=== PATIENT | male | born 1980 | race Caucasian/White ===

== ENCOUNTER 2018-09-04 15:25 | Emergency (ER) | payer OTHER, MEDICAID, SELFPAY ==
[2018-09-04 15:28] VITALS: BP 218/130; PULSE 112; RESP 20; TEMP 36.9; O2SAT 100; BMI 26.6
--- NOTE | 2018-09-04 15:40 | DI.CT.S_ITS ---
PROCEDURE: CT HEAD/BRAIN WO CON INDICATIONS: High blood pressure TECHNIQUE: Noncontrast 4.5 mm thick angled axial sections acquired from the foramen magnum to the vertex, with coronal and sagittal reformats. For radiation dose reduction, the following was used: automated exposure control, adjustment of mA and/or kV according to patient size. COMPARISON: None. FINDINGS: Image quality: Excellent. CSF spaces: Basal cisterns are patent. No extra-axial fluid collections. Ventricles are normal in size and shape. Brain: No midline shift. No intracranial masses or hemorrhage. Staples-white matter interface is normal. Skull and face: Calvarium and visualized facial bones are intact, without suspicious lesions. There is old right frontal craniotomy. Sinuses: Visualized sinuses and mastoids are clear. IMPRESSION: 1. No acute intracranial abnormalities. Dictated by: Claus Shah M.D. on 09/04/2018 at 16:09 Approved by: Claus Shah M.D. on 09/04/2018 at 16:12
--- NOTE | 2018-09-04 16:12 | DI.RAD.S_ITS ---
PROCEDURE: XR CHEST 1V INDICATIONS: headache, hypertension TECHNIQUE: One view of the chest was acquired. COMPARISON: None. FINDINGS: Surgical changes and devices: None. Lungs and pleura: No pleural effusions or pneumothorax. Lungs are clear. Mediastinum: Mediastinal contours appear normal. Heart size is normal. Bones and chest wall: No suspicious bony lesions. Overlying soft tissues appear unremarkable. IMPRESSION: 1. No acute cardiopulmonary disease. Dictated by: Hardik Barnett M.D. on 09/04/2018 at 16:26 Approved by: Hardik Barnett M.D. on 09/04/2018 at 16:27
--- NOTE | 2018-09-04 16:14 | ED.HA ---
HPI - Headache General Chief Complaint: Headache Stated Complaint: States high blood pressure and migraines Time Seen by Provider: 09/04/18 16:12 Source: patient Mode of arrival: ambulatory Limitations: no limitations History of Present Illness HPI Narrative: This a 38-year-old male comes to the emergency department with complaint of headaches and hypertension. Patient states he has a longstanding history of hypertension. Patient states that he was diagnosed 7 or 8 years ago. Was on lisinopril he is not sure of it completely treat his hypertension at the time was a couple years ago. He has not been taking that medication for a long time. He denies any other medical history currently. He did have a craniectomy at the age of 1 because the bones or pulling together inappropriately Um this was at [facility]. He has not had any other surgical interventions. Does smoke about half pack per day, he denies any alcohol or illicit. He states he has been having mild headache today Um and decided to come in because he just has not followed up for a long time he has finally gotten insurance but does not have a primary care provider. He states he does get migraines occasionally all but this is not his typical symptoms today. He occasionally has some tightness in his chest but does not related to anything in particular. He states that has not occurred for several days he denies any shortness of breath with any of these episodes, no vision changes, dizziness, no nausea no vomiting no diaphoresis. Patient's any swelling in his lower extremities. Related Data Previous Rx's Medication Instructions Recorded ibuprofen 600 mg PO TID PRN #14 tab 09/04/18 metoprolol tartrate 12.5 mg PO BID #30 tab 09/04/18 Allergies Allergy/AdvReac Type Severity Reaction Status Date / Time No Known Drug Allergies Allergy Verified 09/04/18 15:32 Review of Systems Review of Systems ROS Unobtainable: All systems reviewed & are unremarkable except as noted in HPI and below Constitutional Denies chills, Denies fever(s), Reports headache(s), Denies lethargy and Denies weakness Eyes Denies change in vision ENT Ears, Nose, Mouth, and Throat: Reports headache(s) and Denies disequilibrium Cardiovascular Reports chest pain (occasional, last a couple days ago.), Denies diaphoresis, Denies syncope, Denies edema, Denies irregular heart rhythm, Denies lightheadedness, Denies radiating jaw, neck or arm pain, Denies palpitations, Denies dyspnea, Denies dyspnea on exertion and Denies orthopnea Respiratory Denies change in phlegm color, Denies chest congestion, Denies cough, Denies dyspnea and Denies dyspnea on exertion Gastrointestinal Gastrointestinal: Denies abdominal pain, Denies change in bowel habits, Denies diarrhea, Denies nausea and Denies vomiting Genitourinary Denies difficulty urinating Musculoskeletal Denies numbness Integumentary/Breasts Denies rash Neurologic Denies syncope, Reports headache(s), Denies focal weakness, Denies numbness, Denies disequilibrium and Denies weakness Endocrine Denies palpitations PFSH Medical History Hypertension (Chronic) Surgical History Status post craniectomy (Acute) Social History Smoking Status: Current every day smoker substance use type: does not use Exam Narrative Exam Narrative: GEN: well nourished, well appearing male, alert and oriented x 3, patient appears to be in no acute distress. HEENT: Atraumatic, pupils are equal round reactive to light, extraocular movements are intact, nares are clear HEART: Regular rate and rhythm without murmur, clicks, rubs. LUNGS:Lungs clear to auscultation, no wheezes, rales, crackles, chest moves symmetrically ABD:bowel sounds normal, soft, non-tender, no guarding, rebound, rigidity, no masses noted, no hepatosplenomegaly :No CVA tenderness MSCL: Non-tender, no muscle atrophy, muscles strength 5/5 upper and lower extremities, full range of motion, normal gait NEURO:CN 2-12 intact, sensation normal Initial Vital Signs Initial Vital Signs: Vital Signs Temperature 98.5 F 09/04/18 15:28 Pulse Rate 112 H 09/04/18 15:28 Respiratory Rate 20 09/04/18 15:28 Blood Pressure 218/130 H 09/04/18 15:28 Pulse Oximetry 100 09/04/18 15:28 Scores HEART Score Heart Score history: Slightly Suspicious Heart Score EKG: Non-Specific repolarization disturbance Heart Score Age: < 45 years old Heart Score risk factors: 1-2 risk factors Heart Score troponin: < or = to normal limit Heart Score Total: 2 Course Orders Ordered: ED Orders 09/04/18 15:40 CT head/brain wo con Stat 01/10/19 15:41 EKG-12 Lead Stat 09/04/18 16:12 XR chest 1V Stat 09/04/18 16:50 Complete Blood Count AUTO DIFF Stat Comprehensive Metabolic Panel Stat Lipase Stat Troponin & CK Cardiac Panel Stat Discontinued Medications Metoprolol Tartrate (Lopressor) 25 mg PO NOW ONE Stop: 09/04/18 16:23 Last Admin: 09/04/18 16:37 Dose: 25 mg Vital Signs - 8 hr 09/04/18 15:28 09/04/18 16:45 09/04/18 17:17 Temperature 98.5 F Pulse Rate 112 H 98 H 75 Respiratory Rate 20 20 18 Blood Pressure 218/130 H Blood Pressure [Right Arm] 212/127 H 140/97 H Pulse Oximetry 100 99 100 MDM - Headache Lab Data Attestation: I reviewed the patient's lab results. Result diagrams: 09/04/18 16:50 09/04/18 16:50 Lab Results 09/04/18 09/04/18 Range/Units 16:50 16:50 WBC 8.4 (4.5-11.0) X10^3/uL RBC 5.62 (4.5-5.9) X10^6/uL Hgb 17.1 (13.5-17.5) g/dL Hct 50.0 (41-53) % MCV 89.1 (80-100) fL MCH 30.4 (26-34) PG MCHC 34.1 (30-36) % RDW 13.6 (11.6-14.8) % Plt Count 262 (150-400) X10^3/uL Neut % (Auto) 52.3 (50-75) % Lymph % (Auto) 35.8 (25-40) % [place] % (Auto) 7.2 (3-14) % Eos % (Auto) 3.8 (2-4) % Baso % (Auto) 0.9 (0-2) % Neut # (Auto) 4400 (0685-2924) /uL Sodium 140 (137-145) mmol/L Potassium 4.2 (3.4-5.1) mmol/L Chloride 103 (98-107) mmol/L Carbon Dioxide 25 (22-32) mmol/L BUN 13 (9-20) mg/dL Creatinine 1.00 (0.66-1.25) mg/dL Estimated GFR > 60.0 (>60) mL/min BUN/Creatinine Ratio 13.0 (6-22) Glucose 88 (70-100) mg/dL Calcium 9.5 (8.4-10.2) mg/dL Total Bilirubin 1.3 (0.2-1.3) mg/dL AST 24 (17-59) IU/L ALT 19 L (21-72) IU/L Alkaline Phosphatase 59 (38-126) U/L Total Creatine Kinase 119 (55-170) U/L CK-MB (CK-2) 0.64 (<2.37) ng/mL CK-MB (CK-2) Rel Index 0.5 L (1.5-5.0) % Troponin I < 0.012 (0.01-0.034) ng/mL Total Protein 7.6 (6.3-8.2) g/dL Albumin 4.5 (3.5-5.0) g/dL Globulin 3.1 (1.7-4.1) g/dL Albumin/Globulin Ratio 1.5 (1.0-2.8) Lipase 115 (23-300) U/L ECG Data Attestation: I personally reviewed and interpreted this ECG as follows: Interpretation: Sinus rhythm with a rate of 104, QRS of 113 and QTC of 427. EKG read it as atrial flutter/tachycardia but patient appears to have P waves with each QRS this does not look like a flutter rhythm. Patient has possible ST elevation but appears to be early repolarization. MDM Narrative Medical decision making narrative: Discussed with patient his headache has been improved here in the emergency department after his pressure is improving. Pressure has improved quite a bit although he is sometimes up to 180s range and diastolic still in the 90s. Discussed with him he does need follow-up. We will give him a short-term script for low-dose metoprolol 12.5 mg b.i.d. patient does not have any major electrolyte, renal or cardiac abnormalities. He is not having chest pain regularly or with any concerning symptomatology. Um headaches have been fairly low intensity. He did request some ibuprofen prescription. We did discuss that he should return if he is having difficulty with follow-up. Discharge Plan Departure Patient Disposition: Home Clinical Impression: Hypertension, Headache Discharge Date/Time: 09/04/18 17:56 Interventions: ED Discharge Assessment Last Done: 09/04/18 17:56 Instructions: Hypertension (Alternative Therapy) Activity Restrictions/Additional Instructions: Follow up with primary care for recheck and treatment of your hypertension. Call tomorrow for an appointment. Take medication as prescribed. This medication can cause lightheadedness. Return to the emergency department for any worsening symptoms, if you're having sudden severe headaches, vision changes and, new chest pain, shortness of breath, swelling in her lower extremities or other new or concerning symptoms. Prescriptions: New metoprolol tartrate 25 mg tablet 12.5 mg PO BID Qty: 30 RF: 0 ibuprofen 600 mg tablet 600 mg PO TID PRN (Reason: pain) Qty: 14 RF: 0 Referrals: [facility] [Provider Group] [facility] [Provider Group] [facility] [Provider Group]
[2018-09-04] MEDS: METOPROLOL 12.5 MG TABLET 25 MG PO (16:37)
[2018-09-04 16:45] VITALS: BP 212/127; PULSE 98; RESP 20; O2SAT 99
[2018-09-04 17:08] LABS: Add Manual Diff / Slide Review NO; Basophils Percent Auto 0.9 % (0-2); Eosinophils Percent Auto 3.8 % (2-4); Hemoglobin 17.1 g/dL (13.5-17.5); Lymphocytes Percent Auto 35.8 % (25-40); Mean Corpuscular HGB Conc 34.1 % (30-36); Mean Corpuscular Hemoglobin 30.4 PG (26-34); Mean Corpuscular Volume 89.1 fL (80-100); Monocytes Percent Auto 7.2 % (3-14); Neutrophils Absolute Auto 4400 /uL (1500-7000); Neutrophils Percent Auto 52.3 % (50-75); Platelet Count 262 X10^3/uL (150-400); Red Blood Cell Count 5.62 X10^6/uL (4.5-5.9); Red Cell Distribution Width 13.6 % (11.6-14.8); White Blood Cell Count 8.4 X10^3/uL (4.5-11.0)
[2018-09-04 17:12] LABS: Alanine Aminotransferase 19 IU/L (21-72); Albumin 4.5 g/dL (3.5-5.0); Albumin Globulin Ratio 1.5 (1.0-2.8); Alkaline Phosphatase 59 U/L (38-126); Aspartate Aminotransferase 24 IU/L (17-59); Bilirubin Total 1.3 mg/dL (0.2-1.3); Blood Urea Nitrogen 13 mg/dL (9-20); Calcium 9.5 mg/dL (8.4-10.2); Carbon Dioxide 25 mmol/L (22-32); Chloride 103 mmol/L (98-107); Creatine Kinase 119 U/L (55-170); Estimated Glomerular Filt Rate > 60.0 mL/min (>60); Globulin 3.1 g/dL (1.7-4.1); Glucose 88 mg/dL (70-100); Lipase 115 U/L (23-300); Potassium 4.2 mmol/L (3.4-5.1); Sodium 140 mmol/L (137-145); Total Protein 7.6 g/dL (6.3-8.2)
[2018-09-04 17:17] VITALS: BP 140/97; PULSE 75; RESP 18; O2SAT 100
[2018-09-04 17:26] LABS: HEMOLYSIS 56 (0-50); Troponin I < 0.012 ng/mL (0.01-0.034)
[2018-09-04 17:27] LABS: CKMB % Relative Index 0.5 % (1.5-5.0); Creatine Kinase MB 0.64 ng/mL (<2.37)
== END 2018-09-04 17:56 | disposition home or self-care (01) ==
PROVIDERS: Emergency Provider Emergency Medicine
DX: I10 Essential (primary) hypertension (principal); R51 Headache
CPT/HCPCS: 36591; 70450; 71045; 80053; 82550; 82553; 83690; 84484; 85025; 93005; 99282; 99285

== ENCOUNTER → 2018-12-24 08:01 | Outpatient (CLI) | payer OTHER, MEDICAID, SELFPAY ==
--- NOTE | 2018-12-24 | DI.ECHO.S_ITS ---
[place] [facility]---------+ [facility] +---------+ : : [address] : : : : [id number] : : : : Phone: [phone] Echocardiogram Report + + :Name: NYDIA BAKER Study Date: 12/24/2018 Height: 67 in : :[facility] Exam Location: [facility] Weight: 175 lb : : Gender: Male BSA: 1.9 m2 : :: 1980 Age: 38 yrs BP: 140/90 mmHg: :Reason For Study: Hypertension : : Performed By: Saima Page : :Referring: LIONEL POP : + + Interpretation Summary The ejection fraction is estimated to be 60-65%. There is no significant valvular heart disease. Procedure: A two-dimensional transthoracic echocardiogram with color flow and Doppler was performed. The study quality was technically adequate. There is no prior echocardiogram noted for this patient. The patient was in normal sinus rhythm during the exam. Left Ventricle: There is mild concentric left ventricular hypertrophy. The left ventricle is normal in size. The ejection fraction is estimated to be 60- 65%. There are no focal wall motion abnormalities. Right Ventricle: The right ventricle is normal in size and function. Atria: Both atria are mildly dilated. There is no Doppler evidence for an interatrial shunt. Mitral Valve: The mitral valve leaflets appear mildly thickened, but open well. There is trace mitral regurgitation. Aortic Valve: The aortic valve is grossly normal. The aortic valve opens well. There is trace aortic regurgitation. Tricuspid Valve: The tricuspid valve is normal in structure and function. Pulmonary artery pressures cannot be estimated because of the lack of a measurable TR jet velocity. Pulmonic Valve: The pulmonic valve is not well visualized. There is trace pulmonic regurgitation. Great Vessels: The aortic root is normal size. The ascending aorta is normal in size. The aortic arch is normal in size. The pulmonary artery is not well visualized, but is probably normal size. The IVC is of normal diameter and collapses greater than 50% with a sniff. This suggests a low right atrial pressure of 3 mm Hg. Pericardium/ Pleura There is no pericardial effusion. There is no pleural effusion. MMode/2D Measurements & Calculations LVIDd: 4.1 cm LVOT diam: 2.2 cm LVIDs: 2.3 cm Ao root diam: 3.2 cm FS: 44.2 % asc Aorta Diam: 3.1 cm EPSS: 0.15 cm Ao Arch Diam (Prox Trans): 2.7 cm IVSd: 1.1 cm LVPWd: 1.2 cm LV triana. diameter/BSA (cm/m^2): 2.2 LV sys. diameter/BSA (cm/m^2): 1.2 LA A2 area: 22.1 cm2 RA long axis: 4.7 cm LA A4 area: 18.7 cm2 RA area: 18.6 cm2 LA length (vol): 4.9 cm RA vol: 62.7 ml LA vol: 71.6 ml RA : 32.8 ml/m2 LA vol index: 37.5 ml/m2 RVD1 (basal): 3.7 cm RVD2 (mid): 3.1 cm Doppler Measurements & Calculations Ao V2 max: 127.8 cm/sec LVOT Max Vincent: 114.9 cm/sec Ao V2 mean: 94.2 cm/sec LV V1 max P.3 mmHg Ao max P.5 mmHg LV V1 VTI: 20.6 cm Ao mean P.8 mmHg MIKE(I,D): 3.4 cm2 Ao V2 VTI: 22.3 cm MIKE(V,D): 3.3 cm2 sev ratio: 0.92 MIKE indexed to BSA (cm^2/m^2): 1.8 MV E max vincent: 54.1 cm/sec PA V2 max: 85.3 cm/sec MV A max vincent: 55.3 cm/sec PA V2 mean: 57.6 cm/sec MV E/A: 0.98 PA mean P.5 mmHg Med Peak E' Vincent: 4.9 cm/sec PA Accel Time: 0.06 sec E/E' med: 11.1 Lat Peak E' Vincent: 8.3 cm/sec E/E' lat: 6.6 E/e' average: 8.9 MV dec time: 0.19 sec MV P1/2t: 56.6 msec MV P1/2t max vicnent: 54.6 cm/sec SV(LVOT): 76.2 ml MVA(P1/2t): 3.9 cm2 Reading Physician:03:32 PM
== END ==
PROVIDERS: PCP Nurse Practitioner Family; Visit Provider Nurse Practitioner Family
DX: I10 Essential (primary) hypertension (principal); F17.200 Nicotine dependence, unspecified, uncomplicated
CPT/HCPCS: 93306

== ENCOUNTER 2019-09-12 05:16 | Emergency (ER) | payer OTHER, MEDICAID, SELFPAY ==
[2019-09-12] MEDS: LABETALOL 20 MG/4 ML SYRINGE 10 MG IV (05:30)
[2019-09-12 05:35] VITALS: BP 230/120; PULSE 93; RESP 17; TEMP 37.1; O2SAT 97; BMI 28.1
--- NOTE | 2019-09-12 05:35 | ED_ITS ---
HPI - Medical Clearance General Chief complaint: Hypertension Stated complaint: fit for prison Time Seen by Provider: 09/12/19 05:16 Source: patient and police Mode of arrival: Ambulatory Limitations: no limitations History of Present Illness HPI Narrative: 39-year-old male daily smoker with history of profound hypert ension is admittedly not taking his medications but free of any symptoms. He is brought by [facility] for medical clearance for incarceration. Patient denies headaches or blurred vision. He has no chest pain or shortness of breath. He has no abdominal pain or numbness, tingling or weakness. He states he is supposed to take lisinopril and metoprolol but doesn't and is unable to explain why. He is otherwise well and free of complaint MD complaint: medical clearance requested Reason for Medical Clearance: medical condition Alleged Intoxication: No Compliant with Home Medications: No Associated Symptoms: denies other symptoms Treatments Prior to Arrival: none Related Information Previous Rx's Medication Instructions Recorded ibuprofen 600 mg PO TID PRN #14 tab 09/04/18 lisinopril 20 mg PO DAILY #30 tab 09/12/19 metoprolol tartrate 12.5 mg PO BID #30 tab 09/12/19 Allergies Allergy/AdvReac Type Severity Reaction Status Date / Time No Known Drug Allergies Allergy Verified 09/04/18 15:32 Review of Systems Constitutional Constitutional: Denies chills, Denies fatigue, Denies fever(s), Denies frequent falls, Denies lethargy and Denies weakness Eyes Eyes: Denies change in vision, Denies eye discharge, Denies irritation and Denies loss of vision ENT Ears, Nose, Mouth, and Throat: Denies change in voice, Denies dizziness, Denies neck pain, Denies sore throat and Denies throat swelling Cardiovascular Cardiovascular: Denies chest pain, Denies irregular heart rhythm, Denies lightheadedness, Denies palpitations, Denies dyspnea, Denies dyspnea on exertion and Denies orthopnea Respiratory Respiratory: Denies cough, Denies dyspnea, Denies dyspnea on exertion and Denies wheezing Gastrointestinal Gastrointestinal: Denies abdominal pain, Denies change in bowel habits, Denies diarrhea, Denies nausea and Denies vomiting Genitourinary Genitourinary: Denies hematuria, Denies flank pain, Denies urinary incontinence and Denies urinary urgency Musculoskeletal Musculoskeletal: Denies back pain, Denies muscle weakness, Denies neck pain, Denies numbness and Denies tingling Integumentary/Breasts Skin/Breast: Denies pruritus, Denies erythema, Denies rash and Denies wounds Neurologic Neurologic: Denies behavioral changes, Denies confusion, Denies dizziness, Denies frequent falls, Denies loss of vision, Denies numbness, Denies tingling and Denies weakness Psychiatric Psychiatric: Denies anxiety, Denies behavioral changes, Denies confusion, Denies depression, Denies homicidal ideation and Denies suicidal ideation Endocrine Endocrine: Denies fatigue, Denies flushing and Denies palpitations Hematologic/Lymphatic Hematologic/Lymphatic: Denies easy bruising Allergic/Immunologic Allergic/Immunologic: Denies urticaria, Denies throat swelling and Denies wheezing Patient History Medical History (Updated 09/12/19 @ 06:14 by Ajit Kumar DO) Hypertension (Chronic) Surgical History (Updated 09/04/18 @ 16:28 by Evette Buitrago DO) Status post craniectomy (Acute) Social History (Updated 09/04/18 @ 16:28 by Evette Buitrago DO) Smoking Status: Current every day smoker substance use type: does not use Smoking Status: Current every day smoker Substance Use Type: does not use Exam Narrative Exam Narrative: GENERAL: [39] year old patient appears stated age. Well- nourished, well-developed patient, in mild distress. HEAD: Atraumatic. Normocephalic. EYES: Pupils equal round and reactive. Extraocular motions intact. No scleral icterus. No injection or drainage. ENT: Nose without bleeding, purulent drainage. Throat without erythema, tonsillar hypertrophy or exudate. Airway patent. NECK: Trachea midline. Non tender CARDIOVASCULAR: Regular rate and rhythm without murmurs, gallops, or rubs. RESPIRATORY: Clear to auscultation. Breath sounds equal bilaterally. No wheezes, rales, or rhonchi. GASTROINTESTINAL: Abdomen soft, non-tender, nondistended. EXTREMITIES: No edema or joint tenderness. BACK: Nontender without deformity or crepitance. No flank tenderness. NEURO: AOx3. SKIN: No rash or erythema of visible areas Initial Vital Signs Initial Vital Signs: Vital Signs Temperature 98.7 F 09/12/19 05:35 Pulse Rate 93 H 01/18/20 05:35 Respiratory Rate 17 09/12/19 05:35 Blood Pressure 230/120 H 09/12/19 05:35 Pulse Oximetry 97 09/12/19 05:35 MDM - Medical Clearance Lab Data Result diagrams: 09/12/19 05:25 09/12/19 05:25 Labs: Lab Results 09/12/19 09/12/19 Range/Units 05:25 05:25 WBC 12.0 H (4.5-11.0) X10^3/uL RBC 5.44 (4.5-5.9) X10^6/uL Hgb 16.8 (13.5-17.5) g/dL Hct 48.5 (41-53) % MCV 89.2 (80-100) fL MCH 30.8 (26-34) PG MCHC 34.6 (30-36) % RDW 13.4 (11.6-14.8) % Plt Count 299 (150-400) X10^3/uL Neut % (Auto) 43.7 L (50-75) % Lymph % (Auto) 45.2 H (25-40) % [place] % (Auto) 7.6 (3-14) % Eos % (Auto) 2.9 (2-4) % Baso % (Auto) 0.6 (0-2) % Neut # (Auto) 5200 (4623-1303) /uL Lymph # (Auto) 5400 H (8716-6268) /uL [place] # (Auto) 900 (0-900) /uL Eos # (Auto) 400 (0-450) /uL Baso # (Auto) 100 (0-100) /uL Sodium 137 (137-145) mmol/L Potassium 3.9 (3.4-5.1) mmol/L Chloride 100 (98-107) mmol/L Carbon Dioxide 26 (22-32) mmol/L BUN 16 (9-20) mg/dL Creatinine 1.00 (0.66-1.25) mg/dL Estimated GFR > 60.0 (>60) mL/min BUN/Creatinine Ratio 16.0 (6-22) Glucose 103 H (70-100) mg/dL Calcium 9.8 (8.4-10.2) mg/dL Total Creatine Kinase 166 (55-170) U/L CK-MB (CK-2) 1.15 (<2.37) ng/mL CK-MB (CK-2) Rel Index 0.7 L (1.5-5.0) % Troponin I < 0.012 (0.01-0.034) ng/mL B-Natriuretic Peptide < 100 (<100) ECG Data Interpretation: EKG is normal sinus rhythm rate [93 ] and free of any signs of ischemia or ectopy. No ST segmental elevation or depression. No T wave inversions MDM Narrative Medical decision making narrative: HTN persists, patient has no symptoms. He states his pressures are where they always are. He wishes to go home to take his medications. He understands the risks of HTN which include stroke, , permanent disability, etc. He has been given return precautions and has had questions answered to his apparent satisfaction. Discharge Plan Departure Patient Disposition: Home Clinical Impression: Hypertension Qualifiers: Hypertension type: essential hypertension Qualified Code(s): I10 - Essential (primary) hypertension Instructions: DI for High Blood Pressure Activity Restrictions/Additional Instructions: *You have been diagnosed with [ hypertension ] *What to do: *Take medications as directed: Prescriptions sent to [facility] at your request *Follow up with your primary care provider in 2-3 days, call for an appointment. Let them know you were seen in the Emergency Department and that we ask that you be seen in follow up *Return to ER if you should have any new, worsening or concerning symptoms Prescriptions: New lisinopril 20 mg tablet 20 mg PO DAILY Qty: 30 RF: 0 Continued metoprolol tartrate 25 mg tablet 12.5 mg PO BID Qty: 30 RF: 0 No Action ibuprofen 600 mg tablet 600 mg PO TID PRN (Reason: pain) Qty: 14 RF: 0 Referrals: [facility] [Outside] Taty Chang ARNP [Primary Care Provider] -
[2019-09-12] MEDS: LISINOPRIL 20 MG TABLET PO (05:42)
[2019-09-12 05:45] LABS: Add Manual Diff / Slide Review NO; Basophils Absolute Auto 100 /uL (0-100); Basophils Percent Auto 0.6 % (0-2); Eosinophils Absolute Auto 400 /uL (0-450); Eosinophils Percent Auto 2.9 % (2-4); Hematocrit 48.5 % (41-53); Hemoglobin 16.8 g/dL (13.5-17.5); Lymphocytes Absolute Auto 5400 /uL (1100-4500); Lymphocytes Percent Auto 45.2 % (25-40); Mean Corpuscular HGB Conc 34.6 % (30-36); Mean Corpuscular Hemoglobin 30.8 PG (26-34); Mean Corpuscular Volume 89.2 fL (80-100); Monocytes Absolute Auto 900 /uL (0-900); Monocytes Percent Auto 7.6 % (3-14); Neutrophils Absolute Auto 5200 /uL (1500-7000); Neutrophils Percent Auto 43.7 % (50-75); Platelet Count 299 X10^3/uL (150-400); Red Blood Cell Count 5.44 X10^6/uL (4.5-5.9); Red Cell Distribution Width 13.4 % (11.6-14.8)
[2019-09-12 05:46] VITALS: BP 220/123; PULSE 78; RESP 20; O2SAT 100
[2019-09-12 05:52] LABS: Blood Urea Nitrogen 16 mg/dL (9-20); Calcium 9.8 mg/dL (8.4-10.2); Carbon Dioxide 26 mmol/L (22-32); Chloride 100 mmol/L (98-107); Creatine Kinase 166 U/L (55-170); Estimated Glomerular Filt Rate > 60.0 mL/min (>60); Glucose 103 mg/dL (70-100); HEMOLYSIS 21 (0-50); Potassium 3.9 mmol/L (3.4-5.1); Sodium 137 mmol/L (137-145)
[2019-09-12 06:04] LABS: Troponin I < 0.012 ng/mL (0.01-0.034)
[2019-09-12 06:07] LABS: CKMB % Relative Index 0.7 % (1.5-5.0); Creatine Kinase MB 1.15 ng/mL (<2.37)
[2019-09-12 06:09] VITALS: BP 204/122; PULSE 84; RESP 18; O2SAT 100
[2019-09-12 06:09] LABS: B Type Natriuretic Peptide < 100 (<100)
[2019-09-12 06:20] VITALS: BP 208/134; PULSE 77
== END 2019-09-12 06:35 | disposition home or self-care (01) ==
PROVIDERS: Emergency Provider Emergency Medicine; PCP Nurse Practitioner Family
DX: I10 Essential (primary) hypertension (principal)
CPT/HCPCS: 36415; 80048; 82550; 82553; 83880; 84484; 85025; 93005; 96374; 99284

== ENCOUNTER 2023-10-15 15:40 | Emergency (ER) | payer OTHER, MEDICAID, SELFPAY ==
[2023-10-15 15:49] VITALS: BP 219/132; PULSE 103; RESP 18; TEMP 36.4; O2SAT 99; BMI 30.7
--- NOTE | 2023-10-15 16:07 | DI.RAD.S_ITS ---
PROCEDURE: XR CHEST 1V INDICATIONS: chest pain TECHNIQUE: One view of the chest was acquired. COMPARISON: [facility], CR, XR CHEST 1V, 09/04/2018, 16:36. FINDINGS: Surgical changes and devices: None. Lungs and pleura: Lungs are clear. No pleural effusions or pneumothorax. Mediastinum: Mediastinal contours appear normal. Heart size is normal. Bones and chest wall: No suspicious bony lesions. Overlying soft tissues appear unremarkable. IMPRESSION: No acute cardiopulmonary abnormality is seen. Dictated by: Sarah Man M.D. on 10/15/2023 at 16:40 Approved by: Sarah Man M.D. on 10/15/2023 at 16:40
[2023-10-15 16:25] LABS: Add Manual Diff / Slide Review NO; Basophils Absolute Auto 100 /uL (0-100); Eosinophils Absolute Auto 300 /uL (0-450); Eosinophils Percent Auto 4.1 % (2-4); Hematocrit 42.1 % (41-53); Hemoglobin 14.4 g/dL (13.5-17.5); Lymphocytes Absolute Auto 2700 /uL (1100-4500); Lymphocytes Percent Auto 36.4 % (25-40); Mean Corpuscular HGB Conc 34.3 % (30-36); Mean Corpuscular Hemoglobin 29.7 PG (26-34); Mean Corpuscular Volume 86.6 fL (80-100); Monocytes Absolute Auto 500 /uL (0-900); Monocytes Percent Auto 6.5 % (3-14); Neutrophils Absolute Auto 3800 /uL (1500-7000); Platelet Count 318 X10^3/uL (150-400); Red Blood Cell Count 4.86 X10^6/uL (4.5-5.9); Red Cell Distribution Width 13.5 % (11.6-14.8); White Blood Cell Count 7.4 X10^3/uL (4.5-11.0)
[2023-10-15 16:27] LABS: INR 0.9 (0.9-1.3); Prothrombin Time 10.7 SECONDS (9.4-12.5)
[2023-10-15 16:30] LABS: PTT Partial Thromboplastin Tim 33 SECONDS (25.1-36.5)
[2023-10-15 16:36] LABS: Alanine Aminotransferase 33 IU/L (<50); Albumin 4.2 g/dL (3.5-5.0); Albumin Globulin Ratio 1.3 (1.0-2.8); Alkaline Phosphatase 68 U/L (38-126); Aspartate Aminotransferase 31 IU/L (17-59); BUN Creatinine Ratio 13.6 (6-22); Bilirubin Total 0.9 mg/dL (0.2-1.3); Blood Urea Nitrogen 14 mg/dL (9-20); Calcium 9.6 mg/dL (8.4-10.2); Carbon Dioxide 24 mmol/L (22-32); Chloride 103 mmol/L (98-107); Creatine Kinase 126 U/L (55-170); Estimated Glomerular Filt Rate > 60 mL/min (>60); Globulin 3.2 g/dL (1.7-4.1); Glucose 80 mg/dL (70-100); HEMOLYSIS 26 (0-50); Lipase 75 U/L (23-300); Potassium 3.9 mmol/L (3.4-5.1); Sodium 138 mmol/L (137-145); Total Protein 7.4 g/dL (6.3-8.2)
[2023-10-15 16:44] LABS: NT-proBNP (BNP-Adult 18+) 94 pg/mL (<125)
[2023-10-15 16:47] LABS: Troponin I < 0.012 ng/mL (0.01-0.034)
[2023-10-15 17:00] VITALS: BP 214/135; PULSE 84; RESP 16; O2SAT 100
[2023-10-15 17:24] VITALS: BP 205/117; PULSE 77
[2023-10-15] MEDS: lisinopriL 10 MG TABLET 20 MG PO (17:24)
[2023-10-15] MEDS: METOPROLOL IR 25 MG TABLET 12.5 MG PO (17:34)
--- NOTE | 2023-10-15 17:55 | ED_ITS ---
HPI - General Adult <Aleah Quintanilla PA-C - Last Filed: 10/15/23 19:02> General Chief complaint: Hypertension Stated complaint: hbp Time Seen by Provider: 10/15/23 16:59 Source: patient Mode of arrival: Ambulatory History of Present Illness HPI narrative: 43-year-old male with past medical history hypertension presents to the ED with 3 weeks of bilateral lower extremity edema. Patient states that he has been on amlodipine at 1 point which worked well for his hypertension but worsened his leg swelling. Patient has also been prescribed lisinopril and metoprolol in the past. Patient states that he has not been compliant with the medications and has not taken any antihypertensives in the last 8 months. Patient has not seen his PCP since the pandemic. Patient is here in the ED for evaluation and treatment of his hypertension. Patient denies headache, visual disturbances, fever, chills, chest pain, shortness of breath, abdominal pain, nausea, vomiting, dysuria, lightheadedness, dizziness, syncope. Related Data Previous Rx's Medication Instructions Recorded ibuprofen 600 mg tablet 600 mg PO TID PRN pain #14 tabs 09/04/18 lisinopril 20 mg tablet 20 mg PO DAILY #30 tabs 09/12/19 metoprolol tartrate 25 mg tablet 12.5 mg (1/2 x 25 mg) PO BID #30 09/12/19 tabs lisinopril 20 mg tablet 20 mg PO DAILY 60 days #60 tabs 10/15/23 metoprolol tartrate 25 mg tablet 12.5 mg (1/2 x 25 mg) PO BID 60 10/15/23 days #30 tabs Allergies Allergy/AdvReac Type Severity Reaction Status Date / Time No Known Drug Allergies Allergy Verified 10/15/23 15:52 Review of Systems <Aleah Quintanilla PA-C - Last Filed: 10/15/23 19:02> Constitutional Constitutional: Denies chills, Denies fatigue, Denies fever(s), Denies frequent falls, Denies lethargy and Denies weakness Eyes Eyes: Denies change in vision, Denies eye discharge, Denies irritation and Denies loss of vision ENT Ears, Nose, Mouth, and Throat: Denies change in voice, Denies dizziness, Denies neck pain, Denies sore throat and Denies throat swelling Cardiovascular Cardiovascular: Denies chest pain, Denies irregular heart rhythm, Denies lightheadedness, Denies palpitations, Denies dyspnea, Denies dyspnea on exertion and Denies orthopnea Comments: Bilateral lower extremity edema; hypertension Respiratory Respiratory: Denies cough, Denies dyspnea, Denies dyspnea on exertion and Denies wheezing Gastrointestinal Gastrointestinal: Denies abdominal pain, Denies change in bowel habits, Denies diarrhea, Denies nausea and Denies vomiting Musculoskeletal Musculoskeletal: Denies neck pain and Denies numbness Integumentary/Breasts Skin/Breast: Denies pruritus, Denies erythema, Denies rash and Denies wounds Neurologic Neurologic: Denies behavioral changes, Denies confusion, Denies dizziness, Denies frequent falls, Denies loss of vision, Denies numbness and Denies weakness Psychiatric Psychiatric: Denies anxiety, Denies behavioral changes, Denies confusion, Denies depression, Denies homicidal ideation and Denies suicidal ideation Endocrine Endocrine: Denies fatigue, Denies flushing and Denies palpitations Hematologic/Lymphatic Hematologic/Lymphatic: Denies easy bruising Allergic/Immunologic Allergic/Immunologic: Denies urticaria, Denies throat swelling and Denies wheezing Patient History <Aleah Quintanilla PA-C - Last Filed: 10/15/23 19:02> Medical History Hypertension Surgical History Status post craniectomy Social History Smoking Status: Current every day smoker substance use type: does not use Smoking Status: Current every day smoker alcohol intake frequency: 0-2 drinks per day Substance Use Type: does not use Exam <Aleah Quintanilla PA-C - Last Filed: 10/15/23 19:02> Narrative Exam Narrative: Const General:?cooperative, healthy appearing and comfortable [facility] Head:?normal to inspection Ears:?hearing grossly normal bilaterally Nose:?external nose normal Face and sinus:?normal facial exam and sinuses nontender Mouth:?oral mucosae normal Throat:?posterior oropharynx normal Eyes General:?appearance normal, both eyes and all related structures Neck Neck:?normal visual inspection and no lymphadenopathy noted Resp Effort & Inspection:?normal respiratory effort Auscultation:?clear to auscultation bilaterally Cardio Rate:?regular rate Rhythm:?regular rhythm Musculoskeletal There is bilateral 1+ pitting edema in the bilateral lower extremities. Neurovascularly intact. Neuro General:?patient alert, patient awake and patient oriented x3 Initial Vital Signs Initial Vital Signs: Vital Signs Temperature 97.6 F 10/15/23 15:49 Pulse Rate 103 H 10/15/23 15:49 Respiratory Rate 18 10/15/23 15:49 Blood Pressure 219/132 H 10/15/23 15:49 Pulse Oximetry 99 10/15/23 15:49 Oxygen Delivery Method Room Air 10/15/23 15:49 <Evette Buitrago DO - Last Filed: 10/18/23 22:56> Initial Vital Signs Initial Vital Signs: Vital Signs Temperature 97.6 F 10/15/23 15:49 Pulse Rate 103 H 10/15/23 15:49 Respiratory Rate 18 10/15/23 15:49 Blood Pressure 219/132 H 10/15/23 15:49 Pulse Oximetry 99 10/15/23 15:49 Oxygen Delivery Method Room Air 10/15/23 15:49 Course <Aleah Quintanilla PA-C - Last Filed: 10/15/23 19:02> Orders Ordered: Discontinued Medications Aspirin (Aspirin 81 Mg Chew Tab) 324 mg PO NOW ONE Stop: 10/15/23 16:08 Last Admin: 10/15/23 17:25 Dose: Not Given Documented By: WILFREDO Lisinopril (Lisinopril 10 Mg Tablet) 20 mg PO NOW ONE Stop: 10/15/23 17:14 Last Admin: 10/15/23 17:24 Dose: 20 mg Documented By: WILFREDO Metoprolol Tartrate (Metoprolol Ir 25 Mg Tablet) 12.5 mg PO NOW ONE Stop: 10/15/23 17:15 Last Admin: 10/15/23 17:34 Dose: 12.5 mg Documented By: WILFREDO Vital Signs Vital signs: Vital Signs - 8 hr 10/15/23 15:49 10/15/23 17:00 10/15/23 17:24 Temperature 97.6 F Pulse Rate 103 H 84 77 Respiratory Rate 18 16 Blood Pressure 219/132 H 214/135 H 205/117 H Pulse Oximetry 99 100 Oxygen Delivery Method Room Air Room Air 10/15/23 18:00 10/15/23 18:33 Temperature 98.7 F 98.7 F Pulse Rate 84 84 Respiratory Rate 16 18 Blood Pressure 188/105 H 198/106 H Pulse Oximetry 99 99 Oxygen Delivery Method Room Air Room Air <Evette Buitrago DO - Last Filed: 10/18/23 22:56> Orders Ordered: Discontinued Medications Aspirin (Aspirin 81 Mg Chew Tab) 324 mg PO NOW ONE Stop: 10/15/23 16:08 Last Admin: 10/15/23 17:25 Dose: Not Given Documented By: WILFREDO Lisinopril (Lisinopril 10 Mg Tablet) 20 mg PO NOW ONE Stop: 10/15/23 17:14 Last Admin: 10/15/23 17:24 Dose: 20 mg Documented By: WILFREDO Metoprolol Tartrate (Metoprolol Ir 25 Mg Tablet) 12.5 mg PO NOW ONE Stop: 10/15/23 17:15 Last Admin: 10/15/23 17:34 Dose: 12.5 mg Documented By: WILFREDO Vital Signs Vital signs: Vital Signs - 8 hr 10/15/23 15:49 10/15/23 17:00 10/15/23 17:24 Temperature 97.6 F Pulse Rate 103 H 84 77 Respiratory Rate 18 16 Blood Pressure 219/132 H 214/135 H 205/117 H Pulse Oximetry 99 100 Oxygen Delivery Method Room Air Room Air 10/15/23 18:00 10/15/23 18:33 Temperature 98.7 F 98.7 F Pulse Rate 84 84 Respiratory Rate 16 18 Blood Pressure 188/105 H 198/106 H Pulse Oximetry 99 99 Oxygen Delivery Method Room Air Room Air Medical Decision Making <Aleah Quintanilla PA-C - Last Filed: 10/15/23 19:02> Lab Data 10/15/23 16:05 10/15/23 16:05 Labs: Lab Results 10/15/23 Range/Units 16:05 WBC 7.4 (4.5-11.0) X10^3/uL RBC 4.86 (4.5-5.9) X10^6/uL Hgb 14.4 (13.5-17.5) g/dL Hct 42.1 (41-53) % MCV 86.6 (80-100) fL MCH 29.7 (26-34) PG MCHC 34.3 (30-36) % RDW 13.5 (11.6-14.8) % Plt Count 318 (150-400) X10^3/uL Neut % (Auto) 52.0 (50-75) % Lymph % (Auto) 36.4 (25-40) % [place] % (Auto) 6.5 (3-14) % Eos % (Auto) 4.1 H (2-4) % Baso % (Auto) 1.0 (0-2) % Neut # (Auto) 3800 (6851-4178) /uL Lymph # (Auto) 2700 (4513-6294) /uL [place] # (Auto) 500 (0-900) /uL Eos # (Auto) 300 (0-450) /uL Baso # (Auto) 100 (0-100) /uL PT 10.7 (9.4-12.5) SECONDS INR 0.9 (0.9-1.3) APTT 33 (25.1-36.5) SECONDS Sodium 138 (137-145) mmol/L Potassium 3.9 (3.4-5.1) mmol/L Chloride 103 (98-107) mmol/L Carbon Dioxide 24 (22-32) mmol/L BUN 14 (9-20) mg/dL Creatinine 1.03 (0.66-1.25) mg/dL Estimated GFR > 60 (>60) mL/min BUN/Creatinine Ratio 13.6 (6-22) Glucose 80 (70-100) mg/dL Calcium 9.6 (8.4-10.2) mg/dL Magnesium 2.0 (1.6-2.3) mg/dL Total Bilirubin 0.9 (0.2-1.3) mg/dL AST 31 (17-59) IU/L ALT 33 (<50) IU/L Alkaline Phosphatase 68 (38-126) U/L Total Creatine Kinase 126 (55-170) U/L Troponin I < 0.012 (0.01-0.034) ng/mL NT-Pro-B Natriuret Pep 94 (<125) pg/mL Total Protein 7.4 (6.3-8.2) g/dL Albumin 4.2 (3.5-5.0) g/dL Globulin 3.2 (1.7-4.1) g/dL Albumin/Globulin Ratio 1.3 (1.0-2.8) Lipase 75 (23-300) U/L MDM Narrative Medical decision making narrative: 43-year-old male with past medical history hypertension presents to the ED with 3 weeks of bilateral lower extremity edema. Concern for CHF versus hypertension versus ACS versus other. EKG, chest x-ray, troponin, labs, BNP obtained and were within normal limits. In the ED, patient is hypertensive at 205/117 but is asymptomatic. Will give patient lisinopril and metoprolol in the ED and restart the prescriptions for home use. Patient's blood pressure came down somewhat to 188/105 following the medications. Recommend follow-up with PCP as soon as possible for further evaluation and treatment. ED return precautions discussed with patient. Patient verbalized understanding. Medical records reviewed: Yes <Evette Buitrago DO - Last Filed: 10/18/23 22:56> Lab Data Labs: Lab Results 10/15/23 Range/Units 16:05 WBC 7.4 (4.5-11.0) X10^3/uL RBC 4.86 (4.5-5.9) X10^6/uL Hgb 14.4 (13.5-17.5) g/dL Hct 42.1 (41-53) % MCV 86.6 (80-100) fL MCH 29.7 (26-34) PG MCHC 34.3 (30-36) % RDW 13.5 (11.6-14.8) % Plt Count 318 (150-400) X10^3/uL Neut % (Auto) 52.0 (50-75) % Lymph % (Auto) 36.4 (25-40) % [place] % (Auto) 6.5 (3-14) % Eos % (Auto) 4.1 H (2-4) % Baso % (Auto) 1.0 (0-2) % Neut # (Auto) 3800 (6006-9459) /uL Lymph # (Auto) 2700 (1946-4833) /uL [place] # (Auto) 500 (0-900) /uL Eos # (Auto) 300 (0-450) /uL Baso # (Auto) 100 (0-100) /uL PT 10.7 (9.4-12.5) SECONDS INR 0.9 (0.9-1.3) APTT 33 (25.1-36.5) SECONDS Sodium 138 (137-145) mmol/L Potassium 3.9 (3.4-5.1) mmol/L Chloride 103 (98-107) mmol/L Carbon Dioxide 24 (22-32) mmol/L BUN 14 (9-20) mg/dL Creatinine 1.03 (0.66-1.25) mg/dL Estimated GFR > 60 (>60) mL/min BUN/Creatinine Ratio 13.6 (6-22) Glucose 80 (70-100) mg/dL Calcium 9.6 (8.4-10.2) mg/dL Magnesium 2.0 (1.6-2.3) mg/dL Total Bilirubin 0.9 (0.2-1.3) mg/dL AST 31 (17-59) IU/L ALT 33 (<50) IU/L Alkaline Phosphatase 68 (38-126) U/L Total Creatine Kinase 126 (55-170) U/L Troponin I < 0.012 (0.01-0.034) ng/mL NT-Pro-B Natriuret Pep 94 (<125) pg/mL Total Protein 7.4 (6.3-8.2) g/dL Albumin 4.2 (3.5-5.0) g/dL Globulin 3.2 (1.7-4.1) g/dL Albumin/Globulin Ratio 1.3 (1.0-2.8) Lipase 75 (23-300) U/L Discharge Plan Departure Patient Disposition: Home Clinical Impression: Hypertension Qualifiers: Hypertension type: unspecified Qualified Code(s): I10 - Essential (primary) hypertension Instructions: DI for High Blood Pressure Activity Restrictions/Additional Instructions: You were evaluated in the ED today for leg swelling and high blood pressure. You were given a dose of lisinopril and metoprolol in the ED which somewhat reduced your blood pressure. It will take several hours for these medications to kick in and further normalize your blood pressure. It is also important that you continue the medications at home. You are being prescribed metoprolol and lisinopril for home use. Please follow-up with your PCP as soon as possible for further evaluation and refills on medications. Return to the ED if you have worsening symptoms, chest pain, shortness of breath. Prescriptions: New lisinopril 20 mg tablet 20 mg PO DAILY 60 Days Qty: 60 0RF metoprolol tartrate 25 mg tablet 12.5 mg PO BID 60 Days Qty: 30 0RF No Action ibuprofen 600 mg tablet 600 mg PO TID PRN (Reason: pain) Qty: 14 0RF lisinopril 20 mg tablet 20 mg PO DAILY Qty: 30 0RF metoprolol tartrate 25 mg tablet 12.5 mg PO BID Qty: 30 0RF Referrals: Taty Chang ARNP [Primary Care Provider] - Stand Alone Forms: Patient Portal/API ED Sign-out <Evette Buitrago DO - Last Filed: 10/18/23 22:56> Cosign ED Attending Mitzy Attestation: I was immediately available in the department for consultation.
[2023-10-15 18:00] VITALS: BP 188/105; PULSE 84; RESP 16; TEMP 37.1; O2SAT 99
[2023-10-15 18:33] VITALS: BP 198/106; PULSE 84; RESP 18; TEMP 37.1; O2SAT 99
== END 2023-10-15 18:45 | disposition home or self-care (01) ==
PROVIDERS: Emergency Medicine; Emergency Provider Student in an Organized Health Care Education/Training Program; PCP Nurse Practitioner Family
DX: I10 Essential (primary) hypertension (principal); R07.9 Chest pain, unspecified; Z79.899 Other long term (current) drug therapy
CPT/HCPCS: 36415; 71045; 80053; 82550; 83690; 83735; 83880; 84484; 85025; 85610; 85730; 93005; 99284

== ENCOUNTER 2023-11-05 19:09 | Inpatient (IN) | payer OTHER, MEDICAID, SELFPAY ==
[2023-11-05] VITALS (9 sets, daily range): BP systolic 166–225; BP diastolic 103–159; PULSE 73–103; RESP 14–30; TEMP 36.3–36.9; O2SAT 93–99; BMI 31.6; BMI 29.1
--- NOTE | 2023-11-05 19:17 | DI.CT.S_ITS ---
PROCEDURE: CT STROKE INDICATIONS: left sided weakness TECHNIQUE: Noncontrast 4.5 mm thick angled axial sections acquired from the foramen magnum to the vertex, with coronal reformats. For radiation dose reduction, the following was used: automated exposure control, adjustment of mA and/or kV according to patient size. COMPARISON: None. FINDINGS: Image quality: Diagnostic. CSF spaces: Basal cisterns are patent. No extra-axial fluid collections. Ventricles are normal in size and shape. Brain: There is a small area in the right parietal cortex posteriorly of loss of bender-white matter differentiation measuring about 2.9 x 1.9 by 2.7 cm. There is loss of sulcation in this area. There is no evidence of acute hemorrhage., significant mass effect, or midline shift. Findings are superimposed on a background of mildly prominent diffuse white matter hypodensity, particularly involving the left frontal region. Skull and face: Calvarium and visualized facial bones are intact, without suspicious lesions. Sinuses: Visualized sinuses and mastoids are clear. IMPRESSION: Acute or subacute loss of bender-white matter differentiation in the right parietal region most suggestive of infarct. No evidence of hemorrhage. Findings discussed with Dr. Jocelyne Omalley in the emergency room at 19:46 hours. This study fulfills neurological imaging criteria for inclusion or exclusion of acute stroke therapies based on available published neurological imaging guidelines. Dictated by: Evi Dejesus M.D. on 11/05/2023 at 19:42 Approved by: Evi Dejesus M.D. on 11/05/2023 at 19:48
--- NOTE | 2023-11-05 19:17 | DI.CT.S_ITS ---
PROCEDURE: CT ANGIO HEAD AND NECK INDICATIONS: left sided weakness TECHNIQUE: After the administration of intravenous contrast, 1 mm thick sections acquired from the aortic arch through the [place] of [place]. 3-dimensional oresrth-rshjdjyyd-wlpyazzbod (MIP) and/or volume rendering reformats were acquired of the central intracranial vasculature and neck separately. For radiation dose reduction, the following was used: automated exposure control, adjustment of mA and/or kV according to patient size. COMPARISON: None. FINDINGS: Image quality: Diagnostic. BRAIN: CSF spaces: Ventricles are normal in size and shape. Basal cisterns are patent. No extra-axial fluid collections. Brain: No significant abnormality of the brain can be seen. Skull and face: Calvarium and facial bones appear intact, without suspicious lesions. Orbits appear normal. Sinuses: Sinuses and mastoids are clear. HEAD CT ANGIOGRAPHY: Anterior circulation: Intracranial internal carotid arteries are normal in size and flow. The flow within the paired anterior cerebral arteries is normal and symmetric. There is diminished flow in the subcortical and distal M3 peripheral branches of the right MCA territory in the parietal region. No proximal thrombosis. The anterior communicating artery is seen. No aneurysms are seen. Posterior circulation: Visualized portions of the vertebral arteries demonstrate normal caliber, and join to form a normal appearing basilar artery. Flow within the posterior cerebral arteries is normal and symmetric. No aneurysms are seen. NECK CT ANGIOGRAPHY: Carotid system: The great vessels demonstrate a conventional anatomy as they arise from the aortic arch. The origins of the common carotid arteries appear patent. The common carotid arteries demonstrate normal caliber and courses. The bifurcation regions are both widely patent. The internal carotid arteries demonstrate normal calibers and courses. Posterior circulation: The origins of the vertebral arteries both appear widely patent. The more superior extracranial portions of both vertebral arteries also demonstrate normal courses and calibers. They join to form a normal appearing basilar artery. Soft tissues: Visualized neck soft tissues demonstrate no suspicious abnormalities. Bones: No suspicious bony lesions. Visualized cervical spine appears normally aligned. IMPRESSION: Diminished flow in the right distal M3 in the right parietal region corresponding to an area of known infarct. Posterior circulation is patent. No abnormalities of the carotid or vertebral circulation. Any quantitative measurements of stenosis were performed using NASCET criteria. Dictated by: Evi Dejesus M.D. on 11/05/2023 at 20:39 Approved by: Evi Dejesus M.D. on 11/05/2023 at 20:51
--- NOTE | 2023-11-05 19:26 | ED.NEUROSD ---
HPI - Neuro Symptoms/Deficit General Chief Complaint: Neuro Symptoms/Deficit Stated Complaint: poss. stroke Time Seen by Provider: 11/05/23 19:17 Source: patient Mode of arrival: Wheelchair History of Present Illness HPI Narrative: Patient is a 43-year-old male history of hypertension presenting today with left hand weakness difficulty getting some words out. He reports that he use some meth last night this morning he went to take a shower and while she was here and then get dressed in his left hand which is his dominant hand was not working appropriately. He had a hard time getting dressed he had a hard time putting his pants he could not wash his hair. He has had some difficulty getting some words out. His blood pressure is noted to be quite high. He denies any chest pain. He just reports his left hand does not feel well. Last known well last night. Left hand dominant On Anticoagulants: No Related Data Home Medications Medication Instructions Recorded Confirmed metoprolol tartrate 25 mg tablet 12.5 mg PO BID 11/05/23 11/05/23 Previous Rx's Medication Instructions Recorded ibuprofen 600 mg tablet 600 mg PO TID PRN pain #14 tabs 09/04/18 lisinopril 20 mg tablet 20 mg PO DAILY #30 tabs 09/12/19 Allergies Allergy/AdvReac Type Severity Reaction Status Date / Time No Known Drug Allergies Allergy Verified 11/05/23 19:22 Review of Systems Hematologic/Lymphatic On Anticoagulants: No Patient History Medical History Hypertension Surgical History Status post craniectomy Social History household members: significant other Smoking Status: Current every day smoker alcohol intake: current substance use type: does not use Smoking Status: Current every day smoker alcohol intake frequency: 0-2 drinks per day Substance Use Type: methamphetamine Exam Initial Vital Signs Initial Vital Signs: Vital Signs Temperature 98.5 F 11/05/23 19:18 Pulse Rate 103 H 11/05/23 19:18 Respiratory Rate 16 11/05/23 19:18 Blood Pressure 212/130 H 11/05/23 19:18 Pulse Oximetry 98 11/05/23 19:18 Oxygen Delivery Method Room Air 11/05/23 19:18 GENERAL: Alert mildly anxious 43-year-old male and in no acute distress. HEENT: Head atraumatic,EOMI, pupils reactive, face symmetric, moist mucous membranes CARDIOVASCULAR: Regular rate and rhythm without murmurs, rubs or gallops. RESPIRATORY: Breath sounds equal bilaterally, no wheezes rales or rhonchi. ABDOMEN: Soft, nontender. Normoactive bowel sounds all 4 quadrants. No guarding or rebound. EXTREMITIES: Normal range of motion, no clubbing or edema. Neurovascularly , strong left distal radial pulse present intact NEUROLOGICAL: Alert and oriented x4.Normal gait and speech. Cranial nerves II through XII grossly intact. 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 Scores NIH Stroke Scale Level of Conciousness: Alert, keenly responsive Ask month/age: Answers both questions correctly. Open/close eyes, close hand: Performs both tasks correctly Best gaze horizontal: Normal Visual carroin: No visual loss Facial palsy: Normal symetrical movement Left arm drift: No drift for full 10 sec Right arm drift: No drift for full 10 sec Left leg drift: No drift for full 5 sec Right leg drift: No drift for full 5 sec Limb ataxia: Absent Sensory on face/arms/legs: Normal, no sensory loss Best language: No aphasia, normal Dysarthria: Normal Extinction or inattention: No abnormality Total NIH Stroke scale score: 0 Course Orders Ordered: ED Orders 11/05/23 19:[address] angio head and neck Stat 11/05/23 19:18 Urinalysis and Microscopic Stat Urine Drug Screen, Rapid Stat EKG-12 Lead Stat 11/05/23 19:28 Complete Blood Count AUTO DIFF Stat Comprehensive Metabolic Panel Stat Ethanol (ETOH) Stat PTT Partial Thromboplastin Huber Stat Prothrombin Time INR Stat Troponin & CK Cardiac Panel Stat 11/05/23 22:35 Covid-19 + FLU A/B + RSV - PCR Stat Acetaminophen (Acetaminophen 325 Mg Tablet) 650 mg PO Q6H PRN PRN Reason: Fever/Mild Pain (1-3) Al Hydrox/Mg Hydrox/Simethicone (Mag Hydrox/Alum/Simeth 30 Ml Udc) 30 ml PO Q6HR PRN PRN Reason: Dyspepsia Enoxaparin Sodium (Enoxaparin 40 Mg/0.4 Ml Syringe) 40 mg SUBCUT DAILY JACOB Lisinopril (Lisinopril 20 Mg Tablet) 20 mg PO DAILY JACOB Metoprolol Tartrate (Metoprolol Ir 25 Mg Tablet) 12.5 mg PO BID JACOB Metoprolol Tartrate (Metoprolol Tartrate 5 Mg/5 Ml Inj) 5 mg IV Q2HR PRN PRN Reason: for SBP>200 Naloxone HCl (Naloxone 0.4 Mg/Ml Vial) 0.2 mg IV Q2MIN PRN PRN Reason: Opiate Reversal Ondansetron HCl (Ondansetron 4 Mg/2 Ml Inj) 4 mg IV Q8HR PRN PRN Reason: Nausea And Vomiting Ondansetron HCl (Ondansetron 4 Mg Odt) 4 mg PO Q8HR PRN PRN Reason: Nausea And Vomiting Discontinued Medications Aspirin (Aspirin Ec 325 Mg Tablet) 325 mg PO NOW ONE Stop: 11/05/23 19:52 Last Admin: 11/05/23 20:19 Dose: 325 mg Documented By: PRASHANT Vital Signs Vital signs: Vital Signs - 8 hr 11/05/23 20:30 11/05/23 20:30 11/05/23 21:00 Pulse Rate 81 Respiratory Rate 20 Blood Pressure 196/123 H 191/112 H Pulse Oximetry 99 Oxygen Delivery Method Room Air 11/05/23 21:00 11/05/23 21:30 11/05/23 21:30 Pulse Rate 77 82 Respiratory Rate 23 22 Blood Pressure 166/103 H Pulse Oximetry 97 98 Oxygen Delivery Method MDM - Neuro Symptoms/Deficit Lab Data 11/05/23 19:28 11/05/23 19:28 Labs: Lab Results 11/05/23 Range/Units 19:28 WBC 11.1 H (4.5-11.0) X10^3/uL RBC 5.13 (4.5-5.9) X10^6/uL Hgb 15.0 (13.5-17.5) g/dL Hct 44.7 (41-53) % MCV 87.1 (80-100) fL MCH 29.3 (26-34) PG MCHC 33.6 (30-36) % RDW 14.1 (11.6-14.8) % Plt Count 334 (150-400) X10^3/uL Neut % (Auto) 55.5 (50-75) % Lymph % (Auto) 35.0 (25-40) % [place] % (Auto) 7.1 (3-14) % Eos % (Auto) 1.7 L (2-4) % Baso % (Auto) 0.7 (0-2) % Neut # (Auto) 6100 (9376-4415) /uL Lymph # (Auto) 3900 (7528-5940) /uL [place] # (Auto) 800 (0-900) /uL Eos # (Auto) 200 (0-450) /uL Baso # (Auto) 100 (0-100) /uL PT 11.8 (9.4-12.5) SECONDS INR 1.0 (0.9-1.3) APTT 34 (25.1-36.5) SECONDS Sodium 141 (137-145) mmol/L Potassium 3.6 (3.4-5.1) mmol/L Chloride 108 H (98-107) mmol/L Carbon Dioxide 25 (22-32) mmol/L BUN 17 (9-20) mg/dL Creatinine 1.16 (0.66-1.25) mg/dL Estimated GFR > 60 (>60) mL/min BUN/Creatinine Ratio 14.7 (6-22) Glucose 109 H (70-100) mg/dL Calcium 9.8 (8.4-10.2) mg/dL Total Bilirubin 1.6 H (0.2-1.3) mg/dL AST 24 (17-59) IU/L ALT 18 (<50) IU/L Alkaline Phosphatase 69 (38-126) U/L Total Creatine Kinase 444 H (55-170) U/L Troponin I < 0.012 (0.01-0.034) ng/mL Total Protein 8.0 (6.3-8.2) g/dL Albumin 4.8 (3.5-5.0) g/dL Globulin 3.2 (1.7-4.1) g/dL Albumin/Globulin Ratio 1.5 (1.0-2.8) Ethyl Alcohol < 10 ( - 10) mg/dL Imaging Data CT scan - head: Radiologist's Impression: PROCEDURE: CT STROKE INDICATIONS: left sided weakness TECHNIQUE: Noncontrast 4.5 mm thick angled axial sections acquired from the foramen magnum to the vertex, with coronal reformats. For radiation dose reduction, the following was used: automated exposure control, adjustment of mA and/or kV according to patient size. COMPARISON: None. FINDINGS: Image quality: Diagnostic. CSF spaces: Basal cisterns are patent. No extra-axial fluid collections. Ventricles are normal in size and shape. Brain: There is a small area in the right parietal cortex posteriorly of loss of bender-white matter differentiation measuring about 2.9 x 1.9 by 2.7 cm. There is loss of sulcation in this area. There is no evidence of acute hemorrhage., significant mass effect, or midline shift. Findings are superimposed on a background of mildly prominent diffuse white matter hypodensity, particularly involving the left frontal region. Skull and face: Calvarium and visualized facial bones are intact, without suspicious lesions. Sinuses: Visualized sinuses and mastoids are clear. IMPRESSION: Acute or subacute loss of bender-white matter differentiation in the right parietal region most suggestive of infarct. No evidence of hemorrhage. Findings discussed with Dr. Jocelyne Omalley in the emergency room at 19:46 hours. This study fulfills neurological imaging criteria for inclusion or exclusion of acute stroke therapies based on available published neurological imaging guidelines. Dictated by: Evi Dejesus M.D. on 11/05/2023 at 19:42 Approved by: Evi Dejesus M.D. on 11/05/2023 at 19:48 CTA - brain/neck: Radiologist's Impression: PROCEDURE: CT ANGIO HEAD AND NECK INDICATIONS: left sided weakness TECHNIQUE: After the administration of intravenous contrast, 1 mm thick sections acquired from the aortic arch through the [place] of [place]. 3-dimensional [id number] (MIP) and/or volume rendering reformats were acquired of the central intracranial vasculature and neck separately. For radiation dose reduction, the following was used: automated exposure control, adjustment of mA and/or kV according to patient size. COMPARISON: None. FINDINGS: Image quality: Diagnostic. BRAIN: CSF spaces: Ventricles are normal in size and shape. Basal cisterns are patent. No extra-axial fluid collections. Brain: No significant abnormality of the brain can be seen. Skull and face: Calvarium and facial bones appear intact, without suspicious lesions. Orbits appear normal. Sinuses: Sinuses and mastoids are clear. HEAD CT ANGIOGRAPHY: Anterior circulation: Intracranial internal carotid arteries are normal in size and flow. The flow within the paired anterior cerebral arteries is normal and symmetric. There is diminished flow in the subcortical and distal M3 peripheral branches of the right MCA territory in the parietal region. No proximal thrombosis. The anterior communicating artery is seen. No aneurysms are seen. Posterior circulation: Visualized portions of the vertebral arteries demonstrate normal caliber, and join to form a normal appearing basilar artery. Flow within the posterior cerebral arteries is normal and symmetric. No aneurysms are seen. NECK CT ANGIOGRAPHY: Carotid system: The great vessels demonstrate a conventional anatomy as they arise from the aortic arch. The origins of the common carotid arteries appear patent. The common carotid arteries demonstrate normal caliber and courses. The bifurcation regions are both widely patent. The internal carotid arteries demonstrate normal calibers and courses. Posterior circulation: The origins of the vertebral arteries both appear widely patent. The more superior extracranial portions of both vertebral arteries also demonstrate normal courses and calibers. They join to form a normal appearing basilar artery. Soft tissues: Visualized neck soft tissues demonstrate no suspicious abnormalities. Bones: No suspicious bony lesions. Visualized cervical spine appears normally aligned. IMPRESSION: Diminished flow in the right distal M3 in the right parietal region corresponding to an area of known infarct. Posterior circulation is patent. No abnormalities of the carotid or vertebral circulation. Any quantitative measurements of stenosis were performed using NASCET criteria. Dictated by: Evi Dejesus M.D. on 11/05/2023 at 20:39 MDM Narrative Medical decision making narrative: Patient 43-year-old male history of hypertension methamphetamine abuse presenting today with left hand weakness. He has no left arm weakness or droop but clearly can not squeeze fingers has almost a left wrist drop. NIH stroke scales actually 0. I do not see any facial droop but has obvious deficit to the left hand only. Imaging reviewed: Noncontrast CT is reported with right parietal region infarct I spoke with Dr. Dejesus. CT angio confirms right parietal infarct and M3 distribution. Blood work has been reviewed no clinical significant abnormalities Patient continues to be hypertensive in the ED. Not tPA candidate due to last known well greater than 4-1/2 hours. He does not have high NIH stroke score 0, although has obvious left hand weakness. He is given aspirin Dr. Adams accepts patient #[id number]: Stroke & Stroke Rehabilitation: Thrombolytic Therapy [] The patient, who arrived at the hospital within 2 hours of time last known well, was diagnosed with subacute or acute ischemic stroke. IV t-PA was initiated within 3 hours of time last known well. [SATISFIES MIPS PERFORMANCE] X The patient was diagnosed with subacute or acute ischemic stroke. IV t-PA was not initiated within 3 hours of last known well due to [select]: [MIPS PERFORMANCE EXCEPTION/EXCLUSION] [] Patient arrived more than 2 hours after last known well time, or the time last known well is unknown [] Patient has a medical contra-indication or reason for not administering [] (ex. neurologist does not believe t-PA is appropriate, active internal bleeding, serious head trauma, acute current or history of intracranial hemorrhage, uncontrollable hypertension, seizure at onset of stroke, CVA in last 3 months, Intracranial or intraspinal surgery in last 3 months, bleeding disorder, thrombocytopenia < 100,000, early radiographic ischemic changes on head CT, INR > 1.7, intracranial neoplasm, AVM, or aneurysm, patient in stroke trial, patient admitted for elective carotid intervention) []Patient or family declined IV t-PA [] The patient, who arrived at the hospital within 2 hours of time last known well, was diagnosed with subacute or acute ischemic stroke. IV t-PA was not initiated within 3 hours of time last known well. [DOES NOT SATISFY MIPS PERFORMANCE] Discharge Plan Departure Patient Disposition: Admitted As Inpatient Clinical Impression: Cerebrovascular accident Admit Date/Time: 11/05/23 21:50 Admit Provider: Danny Navarro
[2023-11-05 19:36] LABS: Add Manual Diff / Slide Review NO; Basophils Absolute Auto 100 /uL (0-100); Basophils Percent Auto 0.7 % (0-2); Eosinophils Absolute Auto 200 /uL (0-450); Eosinophils Percent Auto 1.7 % (2-4); Hematocrit 44.7 % (41-53); Lymphocytes Absolute Auto 3900 /uL (1100-4500); Mean Corpuscular HGB Conc 33.6 % (30-36); Mean Corpuscular Hemoglobin 29.3 PG (26-34); Mean Corpuscular Volume 87.1 fL (80-100); Monocytes Absolute Auto 800 /uL (0-900); Monocytes Percent Auto 7.1 % (3-14); Neutrophils Absolute Auto 6100 /uL (1500-7000); Neutrophils Percent Auto 55.5 % (50-75); Platelet Count 334 X10^3/uL (150-400); Red Blood Cell Count 5.13 X10^6/uL (4.5-5.9); Red Cell Distribution Width 14.1 % (11.6-14.8); White Blood Cell Count 11.1 X10^3/uL (4.5-11.0)
[2023-11-05 19:45] LABS: Prothrombin Time 11.8 SECONDS (9.4-12.5)
[2023-11-05 19:48] LABS: PTT Partial Thromboplastin Tim 34 SECONDS (25.1-36.5)
[2023-11-05 19:49] LABS: Alanine Aminotransferase 18 IU/L (<50); Albumin 4.8 g/dL (3.5-5.0); Albumin Globulin Ratio 1.5 (1.0-2.8); Alkaline Phosphatase 69 U/L (38-126); Aspartate Aminotransferase 24 IU/L (17-59); BUN Creatinine Ratio 14.7 (6-22); Bilirubin Total 1.6 mg/dL (0.2-1.3); Blood Urea Nitrogen 17 mg/dL (9-20); Calcium 9.8 mg/dL (8.4-10.2); Carbon Dioxide 25 mmol/L (22-32); Creatine Kinase 444 U/L (55-170); Estimated Glomerular Filt Rate > 60 mL/min (>60); Globulin 3.2 g/dL (1.7-4.1); Glucose 109 mg/dL (70-100); HEMOLYSIS < 15 (0-50)
[2023-11-05 19:59] LABS: Chloride 108 mmol/L (98-107); Ethanol (ETOH) < 10 mg/dL; Potassium 3.6 mmol/L (3.4-5.1); Sodium 141 mmol/L (137-145)
--- NOTE | 2023-11-05 20:00 | PC.NURSE ---
MD Rendon just left bedside, told pt diagnosis. Pt talking to mother ([phone]). Pt movement is very spastic and and having difficulty following some commands. Does endorse some meth use last night.
[2023-11-05 20:01] LABS: Troponin I < 0.012 ng/mL (0.01-0.034)
--- NOTE | 2023-11-05 20:07 | PC.NURSE ---
pt adamantly refused covid swab. states he has beliefs.
[2023-11-05] MEDS: ASPIRIN EC 325 MG TABLET PO (20:19)
--- NOTE | 2023-11-05 20:24 | PC.NURSE ---
Girlfriend Yumiko Castaneda [phone] Girlfriend at bedside. Received verbal consent from pt to give her information. She tells this nurse that the pt was acting strange around the house this morning around [phone]. Pt throughout the day started having increased in weakness to arm and was acting weird.
--- NOTE | 2023-11-05 23:01 | DI.ECHO.S_ITS ---
[facility] +---------+ Hospital +---------+ : : [address] : : : : [id number] : : : : Phone: [phone] Echocardiogram Report + + :Name: NYDIA BAKER Study Date: 11/06/2023 Height: 67 in : :[facility] ReadingLocation: Weight: 186 lb : : Gender: Male BSA: 2.0 m2 : :: 1980 Age: 43 yrs BP: 164/110 mmHg: :Reason For Study: CVA : : Performed By: Елена Negrete : :Referring: UNSPECIFIED : + + Interpretation Summary Normal sinus rhythm. Normal LV size and wall thickness. Normal wall motion and LV systolic function. Ejection fraction is 60-65%. Normal chamber sizes. No PFO based on bubble study. No significant valvular abnormalities. No source of embolism found. Compared to prior study December 24, 2018, hypertension is worse. Procedure: A two-dimensional transthoracic echocardiogram with color flow and Doppler was performed. The study quality was technically adequate. There is no prior echocardiogram noted for this patient. The heart rate ranged between 62-65 bpm during the study. Left Ventricle: The left ventricle is normal in size. There is mild asymmetric left ventricular hypertrophy. The ejection fraction is estimated to be 60-65%. Diastolic parameters suggest probable normal left ventricular diastolic function and normal filling pressures. Right Ventricle: The right ventricle grossly appears normal in size with probable normal systolic function. Atria: The left atrial size is normal. Right atrial size is normal. Injection of contrast documented no interatrial shunt. Bubble study was captured on image frame(s) # 95. Mitral Valve: The mitral valve leaflets appear mildly thickened, but open well. There is mild mitral regurgitation. Aortic Valve: The aortic valve opens well. No aortic regurgitation is present. Tricuspid Valve: The tricuspid valve leaflets are thin and pliable. There is a trace or physiologic amount of tricuspid regurgitation. The right ventricular systolic pressure is estimated to be at least 28 mmHg based on an estimated right atrial pressure of 3 mm Hg. Pulmonic Valve: The pulmonic valve is not well seen, but is grossly normal. There is no pulmonic valvular regurgitation. Great Vessels: The aortic root is normal size. The ascending aorta could not be visualized. The aortic arch could not be visualized. The IVC is of normal diameter and collapses greater than 50% with a sniff. This suggests a low right atrial pressure of 3 mm Hg. Pericardium/ Pleura There is no pericardial effusion. There is no pleural effusion. MMode/2D Measurements & Calculations LVIDd: 4.5 cm LVOT diam: 1.6 cm LVIDs: 2.2 cm Ao root diam: 3.0 cm FS: 50.7 % EPSS: 0.00 cm IVSd: 1.2 cm LVPWd: 0.81 cm LV triana. diameter/BSA (cm/m^2): 2.3 LV sys. diameter/BSA (cm/m^2): 1.1 LA A2 area: 19.9 cm2 RA long axis: 4.5 cm LA A4 area: 20.0 cm2 RA area: 17.0 cm2 LA length (vol): 4.9 cm RA vol: 54.9 ml LA vol: 68.2 ml RA : 28.0 ml/m2 LA vol index: 34.8 ml/m2 IVC diam: 1.6 cm TAPSE: 2.6 cm Doppler Measurements & Calculations Ao V2 max: 107.8 cm/sec LVOT Max Vincent: 106.5 cm/sec Ao V2 mean: 79.5 cm/sec LV V1 max P.5 mmHg Ao max P.7 mmHg LV V1 VTI: 24.5 cm Ao mean P.7 mmHg MIKE(I,D): 2.1 cm2 Ao V2 VTI: 24.1 cm MIKE(V,D): 2.1 cm2 sev ratio: 1.0 MIKE indexed to BSA (cm^2/m^2): 1.1 MV E max vincent: 60.8 cm/sec TR max vincent: 247.8 cm/sec MV A max vincent: 67.2 cm/sec TR max P.6 mmHg MV E/A: 0.90 PA V2 max: 69.1 cm/sec Med Peak E' Vincent: 6.7 cm/sec PA V2 mean: 43.1 cm/sec E/E' med: 9.0 PA mean P.89 mmHg Lat Peak E' Vincent: 9.7 cm/sec PA pr(Accel): 13.9 mmHg E/E' lat: 6.2 E/e' average: 7.6 MV dec time: 0.21 sec SV(LVOT): 51.5 ml Electronically signed by: Flavia Vidal M.D. on Reading Physician:11/06/2023 04:54 PM
[2023-11-05 23:19] LABS: Influenza A - CEPHEID Flu A NEGATIVE (NEGATIVE); Influenza B - CEPHEID Flu B NEGATIVE (NEGATIVE); Respiratory Syncytial Virus Negative (Negative)
[2023-11-05 23:20] LABS: COVID-19 CEPHEID 4-PLEX PCR Negative (Negative)
[2023-11-06] VITALS (9 sets, daily range): BP systolic 138–193; BP diastolic 89–113; PULSE 55–80; RESP 16–18; TEMP 35.7–37.2; O2SAT 95–100
[2023-11-06 06:28] LABS: Add Manual Diff / Slide Review NO; Basophils Absolute Auto 0 /uL (0-100); Basophils Percent Auto 0.4 % (0-2); Eosinophils Absolute Auto 200 /uL (0-450); Eosinophils Percent Auto 2.7 % (2-4); Hematocrit 43.2 % (41-53); Hemoglobin 14.8 g/dL (13.5-17.5); Lymphocytes Absolute Auto 2900 /uL (1100-4500); Lymphocytes Percent Auto 34.7 % (25-40); Mean Corpuscular HGB Conc 34.3 % (30-36); Mean Corpuscular Hemoglobin 29.9 PG (26-34); Mean Corpuscular Volume 87.2 fL (80-100); Monocytes Absolute Auto 600 /uL (0-900); Monocytes Percent Auto 7.3 % (3-14); Neutrophils Absolute Auto 4600 /uL (1500-7000); Neutrophils Percent Auto 54.9 % (50-75); Platelet Count 285 X10^3/uL (150-400); Red Blood Cell Count 4.96 X10^6/uL (4.5-5.9); Red Cell Distribution Width 14.3 % (11.6-14.8); White Blood Cell Count 8.4 X10^3/uL (4.5-11.0)
--- NOTE | 2023-11-06 06:32 | PM.HP.1 ---
History of Present Illness History of Present Illness Date Patient Seen: 11/05/23 Chief complaint: Poss stroke Narrative: 43 y/o with PMH of HTN and methamphetamine abuse, presented to ED with left arm weakness and slurred speech. His symptoms started approximately 10 hourts prior to his arrival. CTA w/o LVO, CTH showing Rt parietal ischemic CVA. On admission hypertensive. He reported on methamphetamine use and on compliance with metoproilol and lisinopril. [facility] Medical History (Updated 11/06/23 @ 06:43 by Danny Adams MD) Hypertension Surgical History Status post craniectomy Social History household members: significant other Smoking Status: Current every day smoker alcohol intake: current substance use type: does not use Meds Home Medications and Allergies Home Medications Medication Instructions Recorded Confirmed Type ibuprofen 600 mg tablet 600 mg PO TID PRN pain #14 tabs 09/04/18 11/05/23 Rx lisinopril 20 mg tablet 20 mg PO DAILY #30 tabs 09/12/19 11/05/23 Rx metoprolol tartrate 25 mg tablet 12.5 mg PO BID 11/05/23 11/05/23 History Allergies Allergy/AdvReac Type Severity Reaction Status Date / Time No Known Drug Allergies Allergy Verified 11/05/23 19:22 Review of Systems Cardiovascular Comments: wo palpitations Respiratory Comments: w/o shortness of breath Gastrointestinal Comments: w/o nausea Neurologic Comments: Left arm weak, slurred speech Exam Vital Signs (past 8 hours): - 11/06/23 00:18 11/06/23 04:00 Temperature 97.3 F L 96.3 F L Pulse Rate 77 61 Respiratory Rate 18 18 Blood Pressure 168/113 H 159/98 H Pulse Oximetry 98 98 Oxygen Flow Rate 0 0 Oxygen Delivery Method Room Air Oxygen Flow Rate 0 Const Other: sitting in bed in no distress HENMT Other: normocephalic, poor dentition Eyes Other: EOMI, reactive pupils Resp Other: normal respiratory effort Cardio Other: RRR Neuro Other: Dysarthria, facial droop, Lt arm weakness - proximal 4/5, distal 3/5 Psych Other: lucid Objective Labs 11/06/23 06:00 11/05/23 19:28 Labs: Laboratory Results - last 24 hr 11/05/23 11/05/23 11/06/23 19:28 22:35 06:00 WBC 11.1 H 8.4 RBC 5.13 4.96 Hgb 15.0 14.8 Hct 44.7 43.2 MCV 87.1 87.2 MCH 29.3 29.9 MCHC 33.6 34.3 RDW 14.1 14.3 Plt Count 334 285 Neut % (Auto) 55.5 54.9 Lymph % (Auto) 35.0 34.7 [place] % (Auto) 7.1 7.3 Eos % (Auto) 1.7 L 2.7 Baso % (Auto) 0.7 0.4 Neut # (Auto) 6100 4600 Lymph # (Auto) 3900 2900 [place] # (Auto) 800 600 Eos # (Auto) 200 200 Baso # (Auto) 100 0 PT 11.8 INR 1.0 APTT 34 Sodium 141 Potassium 3.6 Chloride 108 H Carbon Dioxide 25 BUN 17 Creatinine 1.16 Estimated GFR > 60 BUN/Creatinine Ratio 14.7 Glucose 109 H Calcium 9.8 Total Bilirubin 1.6 H AST 24 ALT 18 Alkaline Phosphatase 69 Total Creatine Kinase 444 H Troponin I < 0.012 Total Protein 8.0 Albumin 4.8 Globulin 3.2 Albumin/Globulin Ratio 1.5 Ethyl Alcohol < 10 SARS-CoV-2 (PCR) Negative Influenza A (RT-PCR) Flu a negative Influenza B (RT-PCR) Flu b negative RSV (PCR) Negative Assessment & Plan Assessment and plan (1) Acute ischemic right MCA stroke: Status: Acute (2) Hemiparesis of left dominant side due to cerebral infarction: Status: Acute (3) Dysarthria due to acute cerebellar cerebrovascular accident (CVA): Status: Acute (4) Methamphetamine abuse: Status: Acute (5) Hypertension: Status: Acute Assessment & Plan narrative: 1. Acute Ischemic Rt MCA CVA - BP control and abstinence from methamphetamine - nurse monitoring, echocardiogram pending - permissive HTN on admission - lipid panel, A1C, TSH pending - PT, OT, ST 2. Methamphetamine Abuse - counseled 3. HTN - restart home medications DVT prophylaxis - Lovenox Quality VTE Deep Vein Thrombosis/Pulmonary Embolism Present on Admission: No
[2023-11-06 06:37] LABS: BUN Creatinine Ratio 16.7 (6-22); Blood Urea Nitrogen 16 mg/dL (9-20); Calcium 9.4 mg/dL (8.4-10.2); Carbon Dioxide 26 mmol/L (22-32); Chloride 110 mmol/L (98-107); Cholesterol 181 mg/dL (140-199); Estimated Glomerular Filt Rate > 60 mL/min (>60); Glucose 100 mg/dL (70-100); HDL Cholesterol 40 mg/dL (40-60); HEMOLYSIS < 15 (0-50); LDL Cholesterol Calculated 115 mg/dL (<100); Potassium 3.8 mmol/L (3.4-5.1); Sodium 140 mmol/L (137-145); Triglycerides 128 mg/dL (35-150)
[2023-11-06 06:41] LABS: Hemoglobin A1C% w Est Avg Glu 5.3 % (4.0-6.0)
--- NOTE | 2023-11-06 07:06 | PC.NURSE ---
Admit/NOC Shift Note- Patient arrived to room via stretcher from ER 2210. Patient oriented and sleepy. Patient wakes easily to voice. Admit questions done, physical assessment done, medications reviewed, and skin check completed. Patient oriented to bed and bed controls, room, lights, phone, menu, and call bourne/tv remote. safety measures in place. patient agrees to call for assistance. call bourne and phone within reach.
[2023-11-06 07:07] LABS: TSH w/ Reflex to FT4 1.82 uIU/mL (0.47-4.68)
--- NOTE | 2023-11-06 08:18 | PM.HP.1 ---
History of Present Illness History of Present Illness Date Patient Seen: 11/06/23 Chief complaint: Poss stroke Narrative: From night doctor: 43 y/o with PMH of HTN and methamphetamine abuse, presented to ED with left arm weakness and slurred speech. His symptoms started approximately 10 hourts prior to his arrival. CTA w/o LVO, CTH showing Rt parietal ischemic CVA. On admission hypertensive. He reported on methamphetamine use and on compliance with metoproilol and lisinopril. Additonal history: He has had 2 weeks of left hand pain. No BACH, no leg weakness. He had a positive CT head, no LVO. He has had untreated hypertension but recently resume blood pressure medications. He still continues to use methamphetamines occasionally but is trying to, offer them. He has a history of opiate addiction and dependence which is now resolved. [facility] Medical History Hypertension Surgical History Status post craniectomy Social History household members: significant other Smoking Status: Current every day smoker alcohol intake: current substance use type: does not use Meds Home Medications and Allergies Home Medications Medication Instructions Recorded Confirmed Type ibuprofen 600 mg tablet 600 mg PO TID PRN pain #14 tabs 09/04/18 11/05/23 Rx lisinopril 20 mg tablet 20 mg PO DAILY #30 tabs 09/12/19 11/05/23 Rx metoprolol tartrate 25 mg tablet 12.5 mg PO BID 11/05/23 11/05/23 History Allergies Allergy/AdvReac Type Severity Reaction Status Date / Time No Known Drug Allergies Allergy Verified 11/05/23 19:22 Review of Systems Review of Systems Narrative: All else reviewed and otherwise unremarkable except as noted in the history and physical. Exam Vital Signs (past 8 hours): - 11/06/23 04:00 Temperature 96.3 F L Pulse Rate 61 Respiratory Rate 18 Blood Pressure 159/98 H Pulse Oximetry 98 Oxygen Flow Rate 0 Oxygen Delivery Method Room Air Oxygen Flow Rate 0 Narrative Exam Narrative: NAD, alert and oriented, fluent speech, calm. Normocephalic skull, EOMI, anicteric sclera, symmetric pupils. Oropharynx unremarkable, no droop. Neck supple, midline trachea, no adenopathy. Lungs clear, normal rate and effort. Heart regular, no murmur gallop or rub. Abdomen is soft, non distended and non tender. Extremities are free of edema. Skin is free of rash or lesions. Joints are not swollen or deformed. Judgment appears to be normal. Neuro: Left hand is weak and has limited. Mild left facial droop. No leg weakness. No speech difficulties. Objective Imaging CT scan - head: Radiologist's impression: CTA: Diminished flow in the right distal M3 in the right parietal region corresponding to an area of known infarct. Posterior circulation is patent. No abnormalities of the carotid or vertebral circulation. Brain: Acute or subacute loss of bender-white matter differentiation in the right parietal region most suggestive of infarct. No evidence of hemorrhage. Labs 11/06/23 06:00 11/06/23 06:00 Labs: Laboratory Results - last 24 hr 11/05/23 11/05/23 11/06/23 19:28 22:35 06:00 WBC 11.1 H 8.4 RBC 5.13 4.96 Hgb 15.0 14.8 Hct 44.7 43.2 MCV 87.1 87.2 MCH 29.3 29.9 MCHC 33.6 34.3 RDW 14.1 14.3 Plt Count 334 285 Neut % (Auto) 55.5 54.9 Lymph % (Auto) 35.0 34.7 [place] % (Auto) 7.1 7.3 Eos % (Auto) 1.7 L 2.7 Baso % (Auto) 0.7 0.4 Neut # (Auto) 6100 4600 Lymph # (Auto) 3900 2900 [place] # (Auto) 800 600 Eos # (Auto) 200 200 Baso # (Auto) 100 0 PT 11.8 INR 1.0 APTT 34 Sodium 141 140 Potassium 3.6 3.8 Chloride 108 H 110 H Carbon Dioxide 25 26 BUN 17 16 Creatinine 1.16 0.96 Estimated GFR > 60 > 60 BUN/Creatinine Ratio 14.7 16.7 Glucose 109 H 100 Hemoglobin A1c 5.3 Calcium 9.8 9.4 Total Bilirubin 1.6 H AST 24 ALT 18 Alkaline Phosphatase 69 Total Creatine Kinase 444 H Troponin I < 0.012 Total Protein 8.0 Albumin 4.8 Globulin 3.2 Albumin/Globulin Ratio 1.5 Triglycerides 128 Cholesterol 181 LDL Cholesterol, Calc 115 H HDL Cholesterol 40 TSH 1.82 Ethyl Alcohol < 10 SARS-CoV-2 (PCR) Negative Influenza A (RT-PCR) Flu a negative Influenza B (RT-PCR) Flu b negative RSV (PCR) Negative Assessment & Plan Assessment & Plan narrative: 1. Acute Ischemic Rt MCA CVA, present on admission and active. - BP control and abstinence from methamphetamine - monitoring and evaluation advisor, echocardiogram pending - permissive HTN on admission - lipid panel, A1C, TSH pending - PT, OT, ST - Add MRI brain. 2. Methamphetamine Abuse, present on admission and active. - counseled -2D echo to rule out cardiomyopathy as a source of cardioembolic stroke. 3. HTN, present on admission and active. - restart home medications DVT prophylaxis - Lovenox Full full code Lives with his girlfriend, proxy. Time Spent With Patient Time with patient: 30 to 49 minutes with 50% spent counseling/coordinating care Quality VTE Deep Vein Thrombosis/Pulmonary Embolism Present on Admission: No MIPS - Admit I confirm the patient?s Advance Care Plan is present, Code status is documented, Surrogate decision maker is in patient?s record [If Yes, STOP here]: Yes MIPS - Meds 'Current medications' to include all prescriptions, [id number] products, herbals, cannabis/cannabidiol products, and vitamin/mineral/dietary (nutritional) supplements. I have utilized all available resources to obtain, update, or review the patient?s current medications. [If Yes, STOP here]: Yes
[2023-11-06] MEDS: METOPROLOL IR 25 MG TABLET 12.5 MG PO ×2 (08:48→21:47)
[2023-11-06] MEDS: ENOXAPARIN 40 MG/0.4 ML SYRINGE SUBCUT (08:49)
[2023-11-06] MEDS: lisinopriL 20 MG TABLET PO (08:49)
[2023-11-06 08:55] LABS: Ur Creatinine Normal (Normal); Ur Specific Gravity Normal (Normal); Urine Amphetamines Positive (Negative); Urine Methamphetamines Positive (Negative); Urine Tetrahydrocannabinol Negative (Negative); Urine pH Normal (Normal)
[2023-11-06 08:56] LABS: UR Morphine/Opiate cutoff 300 Negative (Negative); Urine Barbiturates Negative (Negative); Urine Benzodiazepines Negative (Negative); Urine Cocaine Negative (Negative); Urine MDMA Negative (Negative); Urine Methadone Negative (Negative); Urine Oxycodone Negative (Negative); Urine Phencyclidine Negative (Negative); Urine Tricyclic Antidepressant Negative (Negative)
--- NOTE | 2023-11-06 10:34 | OT.IP.EVAL ---
Current Diagnoses Other stimulant abuse, uncomplicated (11/05/23) Essential (primary) hypertension (11/05/23) Cerebral infarction due to unspecified occlusion or stenosis of right middle cerebral artery (11/05/23) Cerebral infarction, unspecified (11/05/23) Dysarthria and anarthria (11/05/23) Past Medical History (Last Reviewed 11/06/23 @ 08:18 by Riley Hughes MD) Hypertension Surgical History (Last Reviewed 11/06/23 @ 08:18 by Riley Hughes MD) Status post craniectomy Occupational Therapy Inpatient Evaluation/Re-Eval M1 PT/OT-IP Prior Functional Status Start: 11/06/23 15:03 Freq: NEEDED Status: Active Protocol: Document 11/06/23 15:04 CGR (Rec: 11/06/23 15:34 CGR [id number]) Medical Review Prior Functional Status Medical History Reviewed Yes Communication Pt is an effective verbal communicator. Mobility and Gait Pt was IND at baseline Activities of Daily Living and IADL's Pt was IND in all ADLs at baseline. Social History Household Members significant other Living Arrangements Apartment/Condo Number of Floors (Floors) One Floor Number of Stairs To Enter/Railing? not steps to enter Home Environment Standard Height Toilet,Walk in Shower Additional Social History Comment Pt states that he is technically homeless but is currently staying with his girlfriend at a friends apt which is located on the friend 's families land. Information listed above is for the friend 's apt. Pt has a flat bed and states that he can go back to staying with the friend. 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 M2 OT-IP Current Condition Start: 11/06/23 15:03 Freq: Status: Active Protocol: Document 11/06/23 15:04 CGR (Rec: 11/06/23 15:34 CGR [id number]) Occupational Therapy Current Condition Current Condition Evaluation Date 11/06/23 Treatment Diagnosis L arm weakness and slurred speech. R parietal ischemic CVA Diagnosis Onset Date 11/05/23 M3 OT- IP Subjective and Pain Start: 11/06/23 15:03 Freq: Status: Active Protocol: Document 11/06/23 15:04 CGR (Rec: 03/13/24 15:34 CGR [id number]) OT- Subjective Occupational Therapy Visit Type Type Initial Evaluation Visit Start Time 10:13 Visit Stop Time 10:34 Notes Pt is emotional at times throught the session regarding his new disability. OT Pain Assessment Pain When Pain Assessed At Rest Pain Present Pain Present Denied Pain M4 OT- IP ADL's Start: 11/06/23 15:03 Freq: Status: Active Protocol: Document 11/06/23 15:04 CGR (Rec: 11/06/23 15:34 CGR [id number]) OT [id number] Comments OT Self-Feeding Comments not meal time OT ADL-Grooming Comments OT Grooming Comments Pt declined to perform OT ADL-Oral Care Comments Oral Care Comments Pt declined to perform OT ADL-Dressing General Eval Lower Body Dressing Ability Moderate Assistance Areas Needing Assistance Socks Comments OT Dressing Comments Pt also states that he was unable t button his pants just prior to coming into the hospital OT ADL-Toileting General Evaluation Toileting Ability Independent Areas Needing Assistance Manage Clothing Comments OT Toileting Comments Pt was able to urinate seated on toeilt with pull up boxers and hospital gown. Pt is unlikely to be able to manage a button at this time. OT ADL-Bathing Comments OT Bathing Comments not performed M5 OT- IP IADL's Start: 11/06/23 15:03 Freq: Status: Active Protocol: Document 11/06/23 15:04 CGR (Rec: 11/06/23 15:34 CGR [id number]) OT-Instrumental Activities of Daily Living Deficits IADL Deficits Identified No Deficits Home Safety Awareness Awareness of Need for Assistance at Home Good Awareness Ability to Problem Solve Emergency Able to Problem Solve Situations Medication Management Medication Management No Deficits Identified Money Management Money Management No Deficits Identified Meal Preparation Meal Preparation Comments Pt will likely have difficulty with meal prep at this time Resource Manager Resource Manager Comments Pt will likely have difficulty with chores at this time Driving Driving Comments Pt should no longer be driving given his L visual field cut. M6 OT- IP Functional Cognition Start: 11/06/23 15:03 Freq: Status: Active Protocol: Document 11/06/23 15:04 CGR (Rec: 11/06/23 15:34 CGR [id number]) Cognitive Factors Limiting Selfcare Function Cognitive Ability Level of Alertness Alert Patient Orientation Name,Age,Birthday,Month,Year, Place,Situation Attention Span Ability Capable of Focused Attention, Capable of Sustained Attention Ability to Follow Commands Able to Follow One Step Commands with Increased Time, Able to Follow One Step Commands with Repetition OT- Vision and Hearing OT- Hearing Assessment OT- Hearing Assessment WFL OT- Vision Assessment Visual Attentiveness Impaired Occular Pursuits WFL Visual Convergence WFL Visual [place] Impaired Vision Assessment Comments Pt demonstrates a L visual field cut, possibly to only the L eye but further testing needs to be performed when pt is more able to participate. Pt is very focused on his inability to use his L hand at this time. M7 OT- IP Mobility and Balance Start: 11/06/23 15:03 Freq: Status: Active Protocol: Document 11/06/23 15:04 CGR (Rec: 11/06/23 15:34 CGR [id number]) OT- Bed Mobility Assessment Supine to Sit Supine to Sit Assist Independent Scooting Scooting to Edge of Bed Independent OT-Transfer Assessment Sit to and From Stand Sit to and from Stand Standby Assistance Transfers Transfer Ability Standby Assistance Technique Transfer Destination Bed,Chair,Toilet Transfer Technique Stand Step Pivot Devices Transfer Assistive Devices None Comments Mobility Comments Pt ambulates around the room without AD but bumps into mcnamara on his L side dispite verbal cues. OT- Gait Assessment Gait Gait Assistance Required: Standby Assistance Assistive Devices Assistive Device None Comments Gait Ability Comments mobility around the room OT- Balance Assessment Sitting Balance and Reactions Static Sitting Balance Ability Normal Dynamic Sitting Balance Ability Normal M8 OT- IP Objective Assessments Start: 11/06/23 15:03 Freq: Status: Active Protocol: Document 11/06/23 15:04 CGR (Rec: 11/06/23 15:34 CGR [id number]) OT Gross Range of Motion Upper Extremity Range of Motion Assessment Within Functional Limits ROM Impairments PROM is WFL, some limitations to distal L arm from weakness. OT Strength Upper Extremity Strength Assessment Left Impaired Comments Strength Comments R arm grossly 4+/5 L shld 4-/5 but delayed L elbow 4+/5 but delayed L forearm 2-/5 and delayed L wrist 2-/5 and delayed L hand fx 3+/5 with excessory muscles and exreme effort L hand ext 1/5 OT- Coordination Assessment Upper Extremity Finger to Nose Test Left UE Impaired Finger Tapping Test Left UE Impaired OT-Muscle Tone Assessment Muscle Tone WNL Yes OT Sensation Assessment Comments Summary Comments Pt states sensation is normal Edema Edema Absent M9 OT- IP Assessment and Plan Start: 11/06/23 15:03 Freq: Status: Active Protocol: Document 11/06/23 15:04 CGR (Rec: 11/06/23 15:34 CGR [id number]) OT Summary Assessment and Plan Potential Rehabilitation Potential Good Analytic Complexity at Evaluation Moderate Summary OT Impairments Strength,Coordination, Functional Mobility,Grooming, Dressing,Toileting,Bathing, Toilet Transfers,Shower Transfers Progress Towards Goals Slow Progress due to Medical Issues Assessment Summary Pt presents as a moderate complexity evaluation. Pt admitted with L arm weakenss and slight slurring of speech. Per nursing, pt states that this would come and go but recently had stayed for the last few days. Pt was emotional during todays session when working on the L hand. Pt is able to move all joints with extra time and encouragement but is weak distally on the L arm and with poor coordination and delayed strength to the more proximal joints. Pt states that he was having difficulty managing his pants button at home and decided that he needed to come to the hospital. Pt presents with deficit to the LUE that would likley be improved with consistent therapy, as well as a L visual field cut. It was unclear with testing today if the visual field cut is only to the L eye or to both eyes. Regardless, given the visual deficit, it is no longer safe for pt to drive. Pt would benefit from acute rehab services and could tolerate 3+ hours of therapy a day. If not acute, pt woudl be most appropriate for home with assist from his GF and outpatient therapy. Goals Self-Feeding Goal Independent Grooming Goal Independent Dressing Goal Independent Bathing Goal Independent Shower Transfer Goal Independent OT-Other Goals to perform buttoning and un buttoning. Days to Meet Goals 15 Frequency of Treatment Frequency Of Treatment Once a Day Treatment Plan OT Treatment Plan ADL Training,Functional Mobility,Neuromuscular Re- education,Therapeutic Exercises,Vision Retraining, Patient/Family Education, Discharge Planning Other Treatment Recommendations and Next UE therex program Treatment Focus Discharge Recommendations OT Discharge Recommendations Acute Rehab Other Discharge Recommendations Pt would be a good candidate for aucte therapy, however, if unable to obtain, pt would be most suited for home with outpatient therapy services. Home Equipment Needs none Transportation Needs at Discharge Private Vehicle
--- NOTE | 2023-11-06 11:25 | DI.MRI.S_ITS ---
PROCEDURE: MR HEAD/BRAIN WO CON INDICATIONS: cva TECHNIQUE: Noncontrast axial T1 spin echo, axial T2 fast spin echo, sagittal and axial FLAIR, coronal T2 fast spin echo, axial gradient echo, axial diffusion and ADC through the brain. COMPARISON: [facility], CT, CT STROKE, 11/05/2023, 19:32. FINDINGS: Image quality: Motion degradation. CSF Spaces: Basal cisterns are patent. No extra-axial fluid collections. Ventricles are normal in size and shape. Brain: Restricted diffusion within the right posterior temporal lobe inferior parietal lobe measuring approximately 5.8 x 2.5 cm with associated FLAIR hyperintense signal/edema. Multiple additional smaller foci of restricted diffusion within the posterior right frontal lobe, right parietal lobe and right occipital lobe. Multiple foci of FLAIR signal abnormality within the supratentorial periventricular and subcortical white matter, may represent early chronic microvascular ischemic changes. No intracranial masses or hemorrhage. Staples/white matter interface is normal. Brainstem appears normal. No chronic ischemic insults. Normal intravascular flow voids are present. Skull and face: Thinning of the right parietal calvarium, may be sequela of prior craniotomy. Calvarium has normal marrow signal. Orbits appear normal. Sinuses: Sinuses and mastoids are clear. IMPRESSION: Infarct involving the posterior right temporal and inferior right parietal lobes with associated edema. Multiple additional smaller foci of infarct involving the posterior right frontal lobe, right parietal lobe and right occipital lobe. Dictated by: Frederick Oden M.D. on 11/06/2023 at 15:44 Approved by: Frederick Oden M.D. on 11/06/2023 at 15:49
[2023-11-06 11:32] LABS: Appearance Urine UA CLEAR; Bilirubin Urine UA NEGATIVE (NEGATIVE); Color Urine UA YELLOW; Glucose Urine UA NEGATIVE (Negative); Ketones Urine UA NEGATIVE (NEGATIVE); Leukocyte Esterase Urine UA NEGATIVE (NEGATIVE); Nitrite Urine UA NEGATIVE (Negative); Occult Blood Urine UA NEGATIVE (Negative); Protein Urine UA NEGATIVE (Negative); Urobilinogen Urine UA 0.2 E.U./dL (0.2); pH Urine UA 5.5 (4.5-8.0)
[2023-11-06 11:40] LABS: Bacteria Urine None Seen; Culture Indicated Urine Cult Not Indicated; RBC Urine None Seen (0-5/HPF); Squamous Epithelial Cell Urine None Seen (0-5/HPF); Urine Volume 10mL (spun); WBC Urine 0-1/HPF (0-5/HPF)
--- NOTE | 2023-11-06 15:00 | PT-IP ANOTE ---
Pt out of room for MRI. Will check back for evaluation later today as time allows.
--- NOTE | 2023-11-06 15:33 | CM.DANOTE ---
DCP Assessment Note Pt is a 43yo M, resident of [place], presented with a ischemic CVA, HTN and methamphetamine use. Per RN, pt reports being houseless with [facility], with his main support being his girlfriend/proxy, Yumiko. Next of Kin is Mother, Tram ([phone]). PCP: Taty Chang Payer: [place] and Medicaid Reviewed chart and team rounds for pt's medical status and initial discharge needs. [facility] attempted twice to meet with pt but pt was working with other services or at MRI. Per record review, Plan: Awaiting PT/OT/ST consults and recommendations for evolving discharge plans. [facility] will attempt to meet with client about preferences and discharges plans following day. CM team will plan to follow clinical course closely for assessment of need and coordination of discharge plan. AVTAR Sam Discharge Planning/Care Management CM Discharge Assessment Start: 11/06/23 15:30 Freq: Status: Active Protocol: Document 11/06/23 15:30 MW (Rec: 11/06/23 15:32 MW [id number]) Discharge Planning Assessment Assigned Fixed Route Operator AVTAR Stoll Advance Directives? No History Provided By Medical Record Has Patient been admitted in last 30 No days? Prior Living Arrangements Homeless Comment Per RN, pt has reported he is currently houseless and staying with friends/family intermittently. Whiteboard Updated in Patient Room with No name and ext. # of Fixed Route Operator Please Provide Date Initial DC 11/06/23 Assessment Was Performed
[2023-11-07 03:00] VITALS: BP 147/78; PULSE 49; RESP 19; TEMP 36.7; O2SAT 94
--- NOTE | 2023-11-07 07:17 | P.PN_ITS ---
Subjective Subjective Interval history: Exam Vital Signs (past 8 hours): - 11/07/23 03:00 Temperature 98.0 F Pulse Rate 49 L Respiratory Rate 19 Blood Pressure 147/78 H Pulse Oximetry 94 Oxygen Delivery Method Room Air Oxygen Flow Rate 0 Narrative Exam Narrative: NAD, alert and oriented. Fluent speech. Lungs are clear, normal rate and effort. Heart is regular, no murmur gallop or rub. Abdomen is soft, non distended. Extremities are free of edema. Objective Imaging MRI - head: Radiologist's impression: Infarct involving the posterior right temporal and inferior right parietal lobes with associated edema. Multiple additional smaller foci of infarct involving the posterior right frontal lobe, right parietal lobe and right occipital lobe. Echo: Radiologist's impression: Normal sinus rhythm. Normal LV size and wall thickness. Normal wall motion and LV systolic function. Ejection fraction is 60-65%. Normal chamber sizes. No PFO based on bubble study. No significant valvular abnormalities. No source of embolism found. Compared to prior study December 24, 2018, hypertension is worse. Labs 11/06/23 06:00 11/06/23 06:00 Labs: Laboratory Results - last 24 hr 11/06/23 11/06/23 11/06/23 06:00 08:45 08:45 TSH 1.82 Urine Color Yellow Urine Appearance Clear Urine pH 5.5 Normal Ur Specific [place] 1.020 Urine Protein Negative Urine Glucose (UA) Negative Urine Ketones Negative Urine Occult Blood Negative Urine Nitrate Negative Urine Bilirubin Negative Urine Urobilinogen 0.2 Ur Leukocyte Esterase Negative Urine RBC None seen Urine WBC 0-1/hpf Ur Squamous Epith Cells None seen Urine Bacteria None seen Ur Culture Indicated? Cult not indicated Vol Urine Centrifuged 10ml (spun) U Opiates 300ng/mL cut Negative Ur Oxycodone Screen Negative Urine Methadone Screen Negative Ur Barbiturates Screen Negative U Tricyclic Antidepress Negative Ur Phencyclidine Scrn Negative Ur Amphetamines Screen Positive H U Methamphetamines Scrn Positive H Ur MDMA Scrn (Ecstasy) Negative U Benzodiazepines Scrn Negative Urine Cocaine Screen Negative U Marijuana (THC) Screen Negative Urine Specific [place] Normal Ur Creatinine Normal [facility] Medical History Hypertension Surgical History Status post craniectomy Social History household members: significant other Smoking Status: Current every day smoker alcohol intake: current substance use type: does not use Assessment & Plan Assessment & Plan narrative: 1. Acute Ischemic Rt MCA CVA, present on admission and active. - BP control and abstinence from methamphetamine - multiple right cortical strokes noted on MRI. 2. Methamphetamine Abuse, present on admission and active. - counseled -2D echo with normal EF, No PFO. 3. HTN, present on admission and active. - Continue home medications PLAN: Carotid US , PT/OT/Discharge planning. DVT prophylaxis - Lovenox Quality VTE Deep Vein Thrombosis/Pulmonary Embolism Present on Admission: No
[2023-11-07 08:00] VITALS: BP 163/101; PULSE 66; RESP 22; TEMP 36.8; O2SAT 99
[2023-11-07] MEDS: METOPROLOL IR 25 MG TABLET 12.5 MG PO (08:44)
[2023-11-07 08:45] VITALS: BP 163/101; PULSE 66
[2023-11-07] MEDS: lisinopriL 20 MG TABLET PO (08:45)
[2023-11-07] MEDS: ENOXAPARIN 40 MG/0.4 ML SYRINGE SUBCUT (08:46)
--- NOTE | 2023-11-07 10:00 | DI.US.S_ITS ---
PROCEDURE: US CAROTID DOPPLER BI INDICATIONS: cva TECHNIQUE: Color and pulse Doppler interrogation was performed of both carotid systems, with image documentation and velocity measurements. COMPARISON: None. FINDINGS: Stenosis calculations are based on SRU (Society of Radiologists in Ultrasound) criteria. Right side: Brachial blood pressure: 143/96 mm Hg. Common carotid artery peak systolic velocity: 53 cm/sec. Internal carotid artery peak systolic velocity: 64 cm/sec. Internal carotid artery end diastolic velocity: 28 cm/sec. External carotid artery peak systolic velocity: 75 cm/sec. ICA/CCA peak systolic ratio: 1.2 . Staples scale imaging description: No significant plaquing Percent internal carotid artery stenosis: No significant stenosis. Vertebral artery: Flow direction is antegrade. Left side: Brachial blood pressure: 152/96 mm Hg. Common carotid artery peak systolic velocity: 54 cm/sec. Internal carotid artery peak systolic velocity: 74 cm/sec. Internal carotid artery end diastolic velocity: 25 cm/sec. External carotid artery peak systolic velocity: 98 cm/sec. ICA/CCA peak systolic ratio: 1.4 . Staples scale imaging description: There is a soft plaque at the bifurcation Percent internal carotid artery stenosis: Less than 50%. Vertebral artery: Flow direction is antegrade. IMPRESSION: 1. A soft plaque at the left carotid bifurcation. There is less than 50% left internal carotid stenosis. 2. No significant right internal carotid stenosis. 3. Antegrade flow in vertebral arteries bilaterally. Dictated by: Claus Shah M.D. on 11/07/2023 at 10:28 Approved by: Claus Shah M.D. on 11/07/2023 at 10:30
--- NOTE | 2023-11-07 10:35 | CM.DPC ---
DCP Continued/Assessment Addendum Reviewed EMR and team rounds for pt status. Per hospitalist and OT, Pt would benefit from acute rehab for L hand. LEAF SORTER met with pt at bedside, introduced self and role. Pt was found lying in bed on his side, guarded in affect. Pt confirmed living with a friend, Sandra and his , along with pt's partner, Yumiko. Pt's family live in [place] but per pt, not an option for housing after possible rehab. During months when pt is employed, he pays for monthly stay at [facility]. Updated pt's chart with emergency contact (Yumiko, partner). Barrier/Preferences: Barrier is pt's unstable housing situation (currently couch surfing with a friend, Sandra and ) and active methamphetamine use. 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 Plan: OT recommending acute rehab but recognizes barriers, also recommending home with OP Therapy. Plan A: LEAF SORTER will send referral to [facility] and discuss support system for after discharge. Plan B: Discharge home with outpatient therapies, will attempt to set up for housing programs, set up with ongoing OP SE treatment. CM team will plan to follow clinical course closely for assessment of need and coordination of discharge plan.
--- NOTE | 2023-11-07 11:18 | OT.IP.TRT ---
Current Diagnoses Other stimulant abuse, uncomplicated (11/05/23) Essential (primary) hypertension (11/05/23) Cerebral infarction due to unspecified occlusion or stenosis of right middle cerebral artery (11/05/23) Cerebral infarction, unspecified (11/05/23) Dysarthria and anarthria (11/05/23) Occupational Therapy Treatment Note M2 OT-IP Current Condition Start: 11/06/23 15:03 Freq: Status: Active Protocol: Document 11/06/23 15:04 CGR (Rec: 11/06/23 15:34 CGR [id number]) Occupational Therapy Current Condition Current Condition Evaluation Date 11/06/23 Treatment Diagnosis L arm weakness and slurred speech. R parietal ischemic CVA Diagnosis Onset Date 11/05/23 M3 OT- IP Subjective and Pain Start: 11/06/23 15:03 Freq: Status: Active Protocol: Document 11/07/23 14:01 CGR (Rec: 11/07/23 14:11 CGR [id number]) OT- Subjective Occupational Therapy Visit Type Type Treatment Note Visit Start Time 10:50 Visit Stop Time 11:18 Notes Pt just finishing up with P.T. when OT entered. OT Pain Assessment Pain When Pain Assessed At Rest Pain Present Pain Present Denied Pain M4 OT- IP ADL's Start: 11/06/23 15:03 Freq: Status: Active Protocol: Document 11/07/23 14:01 CGR (Rec: 11/07/23 14:11 CGR [id number]) OT LCQ-Snit-Xxxidft Comments OT Self-Feeding Comments not meal time OT ADL-Grooming General Evaluation Grooming Ability Standby Assistance Areas Needing Assistance Face Washing Comments OT Grooming Comments standing at sink OT ADL-Oral Care General Eval Oral Care Ability Moderate Assistance Areas of Assistance Brushing Teeth,Managing Dentures Comments Oral Care Comments Pt brushed dentures with left hand assist but dentures kept falling out of his hands while cleaning. This service writer assisted the L hand with securly holding his dentures. Pt also washed his top dentures twice, and appeared to not realize that he hand just washed that denture. OT ADL-Dressing Comments OT Dressing Comments not performed OT ADL-Toileting Comments OT Toileting Comments not performed OT ADL-Bathing Comments OT Bathing Comments not performed M5 OT- IP IADL's Start: 11/06/23 15:03 Freq: Status: Active Protocol: Document 11/06/23 15:04 CGR (Rec: 11/06/23 15:34 CGR [id number]) OT-Instrumental Activities of Daily Living Deficits IADL Deficits Identified No Deficits Home Safety Awareness Awareness of Need for Assistance at Home Good Awareness Ability to Problem Solve Emergency Able to Problem Solve Situations Medication Management Medication Management No Deficits Identified Money Management Money Management No Deficits Identified Meal Preparation Meal Preparation Comments Pt will likely have difficulty with meal prep at this time Casino Dealer Casino Dealer Comments Pt will likely have difficulty with chores at this time Driving Driving Comments Pt should no longer be driving given his L visual field cut. M6 OT- IP Functional Cognition Start: 11/06/23 15:03 Freq: Status: Active Protocol: Document 11/06/23 15:04 CGR (Rec: 11/06/23 15:34 CGR [id number]) Cognitive Factors Limiting Selfcare Function Cognitive Ability Level of Alertness Alert Patient Orientation Name,Age,Birthday,Month,Year, Place,Situation Attention Span Ability Capable of Focused Attention, Capable of Sustained Attention Ability to Follow Commands Able to Follow One Step Commands with Increased Time, Able to Follow One Step Commands with Repetition OT- Vision and Hearing OT- Hearing Assessment OT- Hearing Assessment WFL OT- Vision Assessment Visual Attentiveness Impaired Occular Pursuits WFL Visual Convergence WFL Visual Douglas Impaired Vision Assessment Comments Pt demonstrates a L visual field cut, possibly to only the L eye but further testing needs to be performed when pt is more able to participate. Pt is very focused on his inability to use his L hand at this time. M7 OT- IP Mobility and Balance Start: 11/06/23 15:03 Freq: Status: Active Protocol: Document 11/07/23 14:01 CGR (Rec: 11/07/23 14:11 CGR [id number]) OT- Bed Mobility Assessment Sit to Supine Sit to Supine Assist Independent Scooting Scooting to Edge of Bed Independent OT-Transfer Assessment Sit to and From Stand Sit to and from Stand Standby Assistance Transfers Transfer Ability Standby Assistance Devices Transfer Assistive Devices Gait Belt Comments Mobility Comments Pt with less balance today and appears more fidgety throughout session with more impulsive behavior than when see for eval yesterday. OT- Gait Assessment Comments Gait Ability Comments see pt notes OT- Balance Assessment Sitting Balance and Reactions Static Sitting Balance Ability Good Dynamic Sitting Balance Ability Good M8 OT- IP Objective Assessments Start: 11/06/23 15:03 Freq: Status: Active Protocol: Document 11/06/23 15:04 CGR (Rec: 11/06/23 15:34 CGR [id number]) OT Gross Range of Motion Upper Extremity Range of Motion Assessment Within Functional Limits ROM Impairments PROM is WFL, some limitations to distal L arm from weakness. OT Strength Upper Extremity Strength Assessment Left Impaired Comments Strength Comments R arm grossly 4+/5 L shld 4-/5 but delayed L elbow 4+/5 but delayed L forearm 2-/5 and delayed L wrist 2-/5 and delayed L hand fx 3+/5 with excessory muscles and exreme effort L hand ext 1/5 OT- Coordination Assessment Upper Extremity Finger to Nose Test Left UE Impaired Finger Tapping Test Left UE Impaired OT-Muscle Tone Assessment Muscle Tone WNL Yes OT Sensation Assessment Comments Summary Comments Pt states sensation is normal Edema Edema Absent M9 OT- IP Assessment and Plan Start: 11/06/23 15:03 Freq: Status: Active Protocol: Document 11/07/23 14:01 CGR (Rec: 11/07/23 14:11 CGR [id number]) OT Summary Assessment and Plan Potential Rehabilitation Potential Good Analytic Complexity at Evaluation Moderate Summary OT Impairments Strength,Coordination, Functional Mobility,Grooming, Dressing,Toileting,Bathing, Toilet Transfers,Shower Transfers Progress Towards Goals Slow Progress due to Medical Issues Assessment Summary Pt presents as a moderate complexity evaluation. Pt admitted with L arm weakenss and slight slurring of speech. Today pt was able to perform more testing for vision and it appears that pt is experiencing a L visual field cut in both eyes. He is not aware of his deficit. Pt appears more fidgety throughout session but performs UE therex to the LUE and some ADLS at sink. Pt educated on need to continue to perform LUE therex and provided with a handout. This service writer left the room and ~5 minutes later a herminia baumann was called on the patient. When this service writer returned to the room, pt was attempting to leave AMA. MD was present. Goals Self-Feeding Goal Independent Grooming Goal Independent Dressing Goal Independent Bathing Goal Independent Shower Transfer Goal Independent OT-Other Goals to perform buttoning and un buttoning. Days to Meet Goals 15 Frequency of Treatment Frequency Of Treatment Once a Day Treatment Plan OT Treatment Plan ADL Training,Functional Mobility,Neuromuscular Re- education,Therapeutic Exercises,Vision Retraining, Patient/Family Education, Discharge Planning Other Treatment Recommendations and Next UE therex program Treatment Focus Discharge Recommendations OT Discharge Recommendations Acute Rehab Other Discharge Recommendations Pt would be a good candidate for aucte therapy, however, if unable to obtain, pt would be most suited for home with outpatient therapy services. Home Equipment Needs none Transportation Needs at Discharge Private Vehicle
--- NOTE | 2023-11-07 11:19 | PT.IIE ---
Current Diagnoses Other stimulant abuse, uncomplicated (11/05/23) Essential (primary) hypertension (11/05/23) Cerebral infarction due to unspecified occlusion or stenosis of right middle cerebral artery (11/05/23) Cerebral infarction, unspecified (11/05/23) Dysarthria and anarthria (11/05/23) Surgical History (Last Reviewed 11/06/23 @ 08:18 by Riley Hughes MD) Status post craniectomy Medical History (Last Reviewed 11/06/23 @ 08:18 by Riely Hughes MD) Hypertension Physical Therapy Inpatient Evaluation/Re-Eval M1 PT/OT-IP Prior Functional Status Start: 11/06/23 15:03 Freq: NEEDED Status: Active Protocol: Document 11/07/23 10:45 MB (Rec: 11/07/23 11:19 MB [id number]) Medical Review Prior Functional Status Medical History Reviewed Yes Communication Pt is an effective verbal communicator. Mobility and Gait Pt was IND at baseline Activities of Daily Living and IADL's Pt was IND in all ADLs at baseline. Social History Household Members significant other Living Arrangements Homeless Number of Floors (Floors) One Floor Number of Stairs To Enter/Railing? 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 M2 PT-IP Current Condition Start: 11/07/23 10:19 Freq: NEEDED Status: Active Protocol: Document 11/07/23 10:45 MB (Rec: 11/07/23 11:19 MB [id number]) Physical Therapy Current Condition Current Condition Evaluation Date 11/07/23 Treatment Diagnosis Stroke M3 PT-IP Subjective Start: 11/07/23 10:19 Freq: NEEDED Status: Active Protocol: Document 11/07/23 10:45 MB (Rec: 11/07/23 11:19 MB [id number]) Subjective Physical Therapy Visit Type Type Initial Evaluation Visit Start Time 10:45 Visit Stop Time 10:55 Number of BOREMATIC MACHINE OPERATOR Visits 0 Physical Therapy Visit Comments Patient Comments Pt tends to say, yep, often and does not answer questions or provide information unless directly asked. He denies dizziness when asked. Therapy Pain Assessment Pain When Pain Assessed At Rest Pain Present Pain Present Denied Pain M4 PT-IP Mobility and Gait Start: 11/07/23 10:19 Freq: NEEDED Status: Active Protocol: Document 11/07/23 10:45 MB (Rec: 11/07/23 11:19 MB [id number]) PT-Bed Mobility Assessment Supine to Sit Supine to Sit Standby Assistance Scooting Scooting to Edge of Bed Standby Assistance PT-Transfer Assessment Sit to and From Stand Sit to and from Stand Standby Assistance Equipment Transfer Assistive Device Gait Belt Orthotic/Prosthetic Devices or Brace: No Transfers Transfer Destination Bed Transfer Technique Ambulation Transfer Ability Level of Assist Standby Assistance Comments Mobility Comments Pt has trouble following commands and requires repeated cues to perform 1- and 2-step functional commands Gait Assessment Gait Gait Assistance Required: Contact Guard Assist,1 Person Assist Distance (Feet) 100 Able to Maintain Weight Bearing Status Yes During Gait Assistive Devices Assistive Device Gait Belt Orthotic/Prosthetic Devices or Brace: No Gait Deviations General Gait Pattern Decreased Stride Length,Wide Based Gait Factors Limiting Gait Function Factors Limiting Gait Function Decreased Activity Tolerance, Difficulty Following Directions,Incoordination,Poor Balance,Poor Safety Awareness Comments Gait Comments Pt requires closed CGA for gait and requires frequent cueing and cueing multiple times for turns and where to go. Per OT, pt with likely visual field cut and pt does not tend to turn head to maximize visual field with gait but rather keeps head forward and turns en bloc and at 90 deg angles. He misses several cues for left turns as PT attempts to check visual field cut with gait and he able to better follow turning to the right. Pt has LOB with gait with EC and backwards gait and changing back to forward gait from backwards gait and requires up to min A for this transition. Pt walks into hospital door on the left when leaving room and does not have awareness of self or door position Stair Climbing Assessment Evaluation Level of Assist On Stairs Contact Guard Assistance Devices Stair Climbing Assistive Devices Left Railing,Right Railing Technique/Endurance Stair Climbing Direction Ascend and Descend Stair Climbing Technique Step Over Step Number of Steps Climbed 3 Query Text: Stair Climbing Set # Repetitions (reps) 1 Comments Stair Climbing Comments Cues to hold the rail and he uses right hand on rail each time PT-Balance Assessment Sitting Balance and Reactions Static Sitting Balance Ability Good Dynamic Sitting Balance Ability Good Standing Balance and Reactions Static Standing Balance Ability Good Dynamic Standing Balance Ability Fair M5 PT-IP Objective Assessments Start: 11/07/23 10:19 Freq: NEEDED Status: Active Protocol: Document 11/07/23 10:45 MB (Rec: 11/07/23 11:19 MB [id number]) Orientation Orientation/Cognition Level of Alertness Alert Orientation Name,Age,Birthday,Place, Situation Language Function Ability Expressive Aphasia,Word Finding Difficulties Safety Awareness Decreased Safety Awareness Gross Range of Motion Upper Extremity ROM Impairments Defer to OT Lower Extremity ROM Assessment Within Functional Limits Strength Lower Extremity Strength Assessment Within Functional Limits Coordination Assessment Gross Coordination Gross Coordination Impaired Assessment Foot Tapping Test Moderate Impairment Heel on Olson Test Minimal Impairment Coordination Comments RLE with better performance than LLE and more dysmetria with left foot tapping test Sensation Assessment Comments Sensation Comments Pt with decreased proprioception B feet with moving toes up and down and he is inconsistent with sensory testing on B LEs for light touch testing Muscle Tone Muscle Tone WNL Yes M6 PT-IP Treatment Start: 11/07/23 10:19 Freq: NEEDED Status: Active Protocol: Document 11/07/23 10:45 MB (Rec: 11/07/23 11:19 MB [id number]) Physical Therapy Treatment Education Education Provided Safety M7 PT-IP Assessment and Plan Start: 11/07/23 10:19 Freq: NEEDED Status: Active Protocol: Document 11/07/23 10:45 MB (Rec: 11/07/23 11:19 MB [id number]) PT Summary Assessment and Plan Potential Rehabilitation Potential Good Status of Condition at Evaluation Evolving Summary Impairments Balance,Coordination,Sensation ,Cognition,Transfers,Gait Progress Towards Goals Progressing Toward Goals Assessment Summary Pt is a 43 y/o male presenting with visual scanning changes, verbal communication changes, poor balance and propioception and questionable sensation in LEs s/p stroke. He requires heavy cueing for safety with gait today and has particular difficulty with left turns. His change of direction with gait is en bloc, turning 90 deg before making a turn and requires constant cues of where to go. He does not have any ability to scan the environment with gait and this affects safety and balance. Goals Bed Mobility Goal Independent Transfer Goal Independent Gait Goal Independent Gait Distance 100 Days to Meet Goals 5 Frequency of Treatment Frequency Of Treatment Once a Day Treatment Plan Physical Therapy Treatment Plan Transfer Training,Gait Training,Therapeutic Exercise, Balance Retraining,Discharge Planning,Hot or Cold Pack, Neuromuscular Re-ed, Coordination Retraining,Manual Therapy Precautions Other Precautions Fall risk, visual changes with possible field cut Weight Bearing Status Weight Bearing Status Weight Bear as Tolerated Recommendations To Nursing Amount of Assist Needed Standby Assistance,1 Person Assist Discharge Recommendations PT Discharge Recommendations Home with Assistance,Acute Rehab,Outpatient PT Other Discharge Recommendations Acute rehab for 43 y/o s/p stroke with gait, balance, strength, coordination, speech and mentation changes is best plan for improvement for pt Transportation Needs at Discharge Private Vehicle
--- NOTE | 2023-11-07 11:29 | PC.NURSE ---
Patient is A&OX3, he is tearful this a.m. after breakfast stating he wants to leave. Carotid Duplex performed at bedside. Patient is seen by SW this a.m. and states he is agreeable to Rehab and plan for discharge. He sets of the bed alarm off after lying in bed and states I defaulted on a payment at 10 a.m. swearing and then the last thing I need is bad credit! I need to get out of here. He throws a chair in the room and kicks furniture. MD at bedside reviews AMA form with patient and he is aggreeable to signing it. Security at bedside walked with patient out to hospital entrance at 1125 a.m. with his belongings. He denied having a ride or phone or wanting to call anyone. He responds No. I'll walk.
--- NOTE | 2023-11-07 11:59 | PM.DS.1 ---
History of Present Illness History of Present Illness Chief complaint: Poss stroke Narrative: From night doctor: 43 y/o with PMH of HTN and methamphetamine abuse, presented to ED with left arm weakness and slurred speech. His symptoms started approximately 10 hourts prior to his arrival. CTA w/o LVO, CTH showing Rt parietal ischemic CVA. On admission hypertensive. He reported on methamphetamine use and on compliance with metoproilol and lisinopril. Additonal history: He has had 2 weeks of left hand pain. No BACH, no leg weakness. He had a positive CT head, no LVO. He has had untreated hypertension but recently resume blood pressure medications. He still continues to use methamphetamines occasionally but is trying to, offer them. He has a history of opiate addiction and dependence which is now resolved. Discharge Providers Provider Date of admission: 11/05/23 21:50 Discharge Date: 11/07/23 Primary care physician: TEE Lu Consults: 11/05/23 23:38 Consult to Physical Therapy Evaluate & Treat Comment: Dysarthria, Rt MCA CVA Physician Instructions: Evaluate and Treat 11/05/23 23:39 Consult to Physical Therapy Evaluate & Treat Comment: Rt MCA CVA, Lt arm weakness Physician Instructions: Evaluate and Treat 11/05/23 23:40 Consult to Occupational Therapy Evaluate & Treat Comment: Rt MCA CVA, Lt arm weakness Physician Instructions: Evaluate and treat Discharge provider: Riley Hughes MD Summary Hospital Course Discharge Diagnosis: 1. Against medical advice discharge. 2. Acute Ischemic Rt MCA CVA, present on admission and active. - BP control and abstinence from methamphetamine 3. Methamphetamine Abuse, present on admission and active. - counseled -2D echo normal , no PFO. 4. HTN, present on admission and active. - restarted home medications Hospital Course: This patient was admitted with subacute stroke symptoms at add likely been going on for 1-2 weeks from his account. His symptoms were primarily left forearm and hand weakness. He is left-handed. The patient is currently using methamphetamines but apparently has been decreasing his use. The patient is also said to be homeless, using a car and possibly living in his car with his girlfriend. The patient arrived and was found to have initially evidence of a right hemisphere stroke on CT scan. A CT angiogram was negative for large vessel occlusion. An MRI confirmed multiple right sided cortical strokes. The concern was for embolization. With this history of methamphetamine use a cardiac echo was obtained to rule out cardiomyopathy and/or PFO. It was actually fairly normal and there was no PFO. The patient does have a long history of hypertension which has been poorly controlled. Only recently has restarted his medications. He has been trying to get healthier. The patient had a carotid duplex to rule out right internal carotid stenosis in spite of a normal CT angiogram read on the morning of November 06. The patient became abruptly agitated after this through a chair across the room and said he is got to get out of here. At this point he signed out against medical advice. He was warned that his neurologic symptoms could worsen and may not improve. He is also advised to stay in the hospital and continue to obtain medical care. The patient signed the document stormed out of the hospital. A code napoleon was called at the time of his outburst. I spoke to his mother who had called a little bit later for extended amount of time. She is quite frustrated with his ongoing difficulties in a difficult relationship, his homeless status, and is intermittent drug use. She also notes he has a history of bipolar and is very worried about his future. Status at Discharge Cognitive/behavioral status at discharge: oriented Functional status at discharge: independent ambulation Overall status at discharge: patient is progressing back to baseline Time Spent with Patient Time spent: Greater than 30 minutes Exam Vital Signs (past 8 hours): - 11/07/23 08:00 11/07/23 08:45 Temperature 98.3 F Pulse Rate 66 66 Respiratory Rate 22 Blood Pressure 163/101 H 163/101 H Pulse Oximetry 99 Oxygen Flow Rate 0 Oxygen Delivery Method Room Air Oxygen Flow Rate 0 Narrative Exam Narrative: Speech is normal, his content of language appears to be normal. He is somewhat agitated initially but cooled down. He is breathing normally. No leg edema. His gait is fairly normal. He is able to move both upper extremities his left hand is less mobile. Objective Imaging Multiple studies:: Radiologist's impression: CTA Head and Neck: Diminished flow in the right distal M3 in the right parietal region corresponding to an area of known infarct. Posterior circulation is patent. No abnormalities of the carotid or vertebral circulation. CT Brain: Acute or subacute loss of bender-white matter differentiation in the right parietal region most suggestive of infarct. No evidence of hemorrhage. ECHO: Normal sinus rhythm. Normal LV size and wall thickness. Normal wall motion and LV systolic function. Ejection fraction is 60-65%. Normal chamber sizes. No PFO based on bubble study. No significant valvular abnormalities. No source of embolism found. Compared to prior study December 24, 2018, hypertension is worse. MRI Brain: Infarct involving the posterior right temporal and inferior right parietal lobes with associated edema. Multiple additional smaller foci of infarct involving the posterior right frontal lobe, right parietal lobe and right occipital lobe. Carotid US: 1. A soft plaque at the left carotid bifurcation. There is less than 50% left internal carotid stenosis. 2. No significant right internal carotid stenosis. 3. Antegrade flow in vertebral arteries bilaterally. Labs 11/06/23 06:00 11/06/23 06:00 PFSH Medical History Hypertension Surgical History Status post craniectomy Social History household members: significant other Smoking Status: Current every day smoker alcohol intake: current substance use type: does not use Discharge Assessment & Plan Assessment and Plan Assessment: 1. Against medical advice discharge. 2. Acute Ischemic Rt MCA CVA, present on admission and active. - BP control and abstinence from methamphetamine 3. Methamphetamine Abuse, present on admission and active. - counseled -2D echo normal , no PFO. 4. HTN, present on admission and active. - restarted home medications Plan of Treatment: Against medical advice discharge. Discharge Plan Discharge Plan Patient Disposition: Left Against Medical Advice Provider Discharge Comment: He left against medical advice. He did not want any further input on medications or follow-up plan. Discharge orders & Medications Prescriptions: Continued ibuprofen 600 mg tablet 600 mg PO TID PRN (Reason: pain) Qty: 14 0RF lisinopril 20 mg tablet 20 mg PO DAILY Qty: 30 0RF metoprolol tartrate 25 mg tablet 12.5 mg PO BID Follow up/Referrals: Taty Chang ARNP [Primary Care Provider] - Visit Report/Discharge Packet Stand Alone Forms: Patient Portal/API, Stroke Signs & Symptoms Discharge Data Primary Care Provider: Taty Chang Quality VTE Deep Vein Thrombosis/Pulmonary Embolism Present on Admission: No
--- NOTE | 2023-11-07 17:03 | PC.NURSE ---
Late Entry: Loud crash noise heard from across the [place]. I approached room 208 in time to see BRIONNA Darryl rapidly exiting room. Patient was in room, standing of far side of the bed, pulling off cardiac/manager auto. He was agitated and yelling about getting out of here. Patient said something about missing a bill payment at 10 a.m. and needing to leave. Dr. Hughes and primary RN Chanell entered room. They were able to verbally deescalate the patient. He was insistent on leaving. Dr. Hughes explained the risk related to his diagnosis. Patient signed AMA paperwork. The patient was collected his belongings, and the RN was removed his IV. Once the patient had his belongings, he was still insistent on leaving. He was dressing in a hospital gown, socks, shoes and a coat. He denies having someone to give him a ride. Patient was calm while being escorted out, although unsteady gait down the stairs. He stated that he just needed to leave. I reassured him that we were only concerned for his safety and well-being. He said he understood. He stated he would call when he arrive at his intended destination. Shortly after his departure, a call was received at the main nurses station, the OPERATING ROOM ORDERLY took a message from someone reporting to be the patient's step mother, she stated he asked her to call and let us know he had arrived safely.
== END 2023-11-07 11:25 | disposition left against medical advice (07) | DRG 45 ==
LOC: ED 20:15 → AC 21:51
PROVIDERS: Admitting Provider Internal Medicine; Emergency Provider Emergency Medicine; PCP Nurse Practitioner Family; Referring Provider Emergency Medicine; Visit Provider Internal Medicine
DX: I63.89 Other cerebral infarction (principal); I10 Essential (primary) hypertension; R47.1 Dysarthria and anarthria; F15.10 Other stimulant abuse, uncomplicated; R29.710 NIHSS score 10; R29.705 NIHSS score 5; G81.94 Hemiplegia, unspecified affecting left nondominant side; F17.210 Nicotine dependence, cigarettes, uncomplicated; Z53.29 Procedure and treatment not carried out because of patient's decision for other reasons; Z59.02 Unsheltered homelessness
CPT/HCPCS: 0241U; 36415; 70450; 70496; 70498; 70551; 80048; 80053; 80061; 80305; 80320; 81001; 82550; 83036; 84443; 84484; 85025; 85610; 85730; 93306; 93880; 97110; 97161; 97166; 97535; 99284; 99285; J1650; Q9967

== ENCOUNTER 2023-11-08 09:42 | Emergency (ER) | payer OTHER, MEDICAID, SELFPAY ==
[2023-11-05 22:05] VITALS: BMI 29.1
[2023-11-08 09:52] VITALS: BP 170/124; PULSE 120; RESP 18; TEMP 36.7; O2SAT 98; BMI 31.3
--- NOTE | 2023-11-08 09:56 | ED.NEUROSD ---
HPI - Neuro Symptoms/Deficit General Chief Complaint: Neuro Symptoms/Deficit Stated Complaint: returning pt per pt Time Seen by Provider: 11/08/23 09:52 History of Present Illness HPI Narrative: Patient is a 43-year-old male history of hypertension methamphetamine abuse with recent CVA and left hand weakness. He was admitted to the hospital on November 04. He had an MRI confirmed multiple right-sided cortical strokes concern was for embolism. Cardiac echo did not show any cardiomyopathy or PFO. Yesterday he became abruptly agitated throwing a chair Code napoleon was called and he left against medical advice. He returns today because he wants to continue treatment. He denies any recent methamphetamine abuse. He is again tearful on arrival. He continues to have left hand and forearm weakness. Related Data Home Medications Medication Instructions Recorded Confirmed metoprolol tartrate 25 mg tablet 12.5 mg PO BID 11/05/23 11/05/23 Previous Rx's Medication Instructions Recorded ibuprofen 600 mg tablet 600 mg PO TID PRN pain #14 tabs 09/04/18 lisinopril 20 mg tablet 20 mg PO DAILY #30 tabs 09/12/19 lisinopril 20 mg tablet 20 mg PO DAILY #30 tabs 11/08/23 metoprolol tartrate 25 mg tablet 12.5 mg (1/2 x 25 mg) PO BID #30 11/08/23 tabs Allergies Allergy/AdvReac Type Severity Reaction Status Date / Time No Known Drug Allergies Allergy Verified 11/08/23 09:59 Patient History Medical History Hypertension Surgical History Status post craniectomy Social History household members: significant other Smoking Status: Current every day smoker alcohol intake: current substance use type: does not use Smoking Status: Current every day smoker alcohol intake frequency: a few times a week Substance Use Type: marijuana, methamphetamine and other Exam Initial Vital Signs Initial Vital Signs: Vital Signs Temperature 98.1 F 11/08/23 09:52 Pulse Rate 120 H 11/08/23 09:52 Respiratory Rate 18 11/08/23 09:52 Blood Pressure 170/124 H 11/08/23 09:52 Pulse Oximetry 98 11/08/23 09:52 Oxygen Delivery Method Room Air 11/08/23 09:52 GENERAL: Alert 43-year-old male HEAD: Atraumatic. Normocephalic. EYES: Pupils equal round and reactive. Extraocular motions intact. No scleral icterus. No injection or drainage. CARDIOVASCULAR: Regular rate and rhythm without murmurs, gallops, or rubs. RESPIRATORY: Clear to auscultation. Breath sounds equal bilaterally. No wheezes, rales, or rhonchi. GASTROINTESTINAL: Abdomen soft, non-tender, nondistended. EXTREMITIES: No edema or joint tenderness. BACK: Nontender without deformity or crepitance. No flank tenderness. NEURO: AOx3. Persistent left hand and forearm weakness no new deficits SKIN: No rash or erythema of visible areas Course Orders Ordered: ED Orders 11/08/23 10:07 Consult to NUCLEAR PHYSICS TEACHER - Fuel Cell Builder Stat Vital Signs Vital signs: Vital Signs - 8 hr 11/08/23 09:52 11/08/23 12:12 Temperature 98.1 F 98.7 F Pulse Rate 120 H 96 H Respiratory Rate 18 16 Blood Pressure 170/124 H 181/118 H Pulse Oximetry 98 98 Oxygen Delivery Method Room Air Room Air MDM - Neuro Symptoms/Deficit MDM Narrative Medical decision making narrative: Patient 43-year-old methamphetamine abuse recent CVA causing dominant left hand and forearm weakness. Presents today with wanting more rehab. I discussed case with Dr. Hughes the hospitalist who released him yesterday reports that he would likely benefit from rehab however secondary to methamphetamine use questionable if he qualifies. We both agree no need for readmission this time. Social work re-evaluated sharp. Unfortunately to to the fact that patient left aids medical advice yesterday continues to use rehab facilities will not accept him. He is offered detox many times continues to decline Discharge Plan Departure Patient Disposition: Home Clinical Impression: Acute ischemic right MCA stroke Instructions: DI for Stroke-Ischemic Activity Restrictions/Additional Instructions: *You have been diagnosed with stroke *What to do: At this time I agreed to stop using drugs. You will need to continue physical therapy. You can do outpatient physical therapy. Unfortunately you are not accepted to other rehab facilities. You will need a primary care provider to right you for physical therapy *Continue to take medications as directed Blood pressure medication has been filled and sent to [facility] *Follow up with your primary care provider in 2-3 days or call [phone] *Return to ER if you should have increasing weakness any new, worsening or concerning symptoms Prescriptions: New lisinopril 20 mg tablet 20 mg PO DAILY Qty: 30 0RF metoprolol tartrate 25 mg tablet 12.5 mg PO BID Qty: 30 0RF No Action ibuprofen 600 mg tablet 600 mg PO TID PRN (Reason: pain) Qty: 14 0RF lisinopril 20 mg tablet 20 mg PO DAILY Qty: 30 0RF metoprolol tartrate 25 mg tablet 12.5 mg PO BID Referrals: Taty Chang ARNP [Primary Care Provider] - Stand Alone Forms: Patient Portal/API
--- NOTE | 2023-11-08 10:40 | PC.NURSE ---
No pain or new symptoms.
--- NOTE | 2023-11-08 10:41 | PC.NURSE ---
Poor left sided soccer player strength. Pt ambulatory. Pt AMA from hospital stay. Pt presents for further eval/resources. Pt appears anxious. Pt denies meth use.
[2023-11-08 12:12] VITALS: BP 181/118; PULSE 96; RESP 16; TEMP 37.1; O2SAT 98
--- NOTE | 2023-11-08 12:13 | PC.NURSE ---
Pt bp 181/118. Pt left before bp could be cleared by for dc. Pt did verablize he was going straight to the pharmacy to hop picker his bp medicine
--- NOTE | 2023-11-08 12:21 | CM.SWNOTE ---
ED COORDINATOR HOTELS Note Patient is 43 y/o male who presents to the ED after leaving AMA yesterday from acute care after CVA. Patient presents with dominant left hand and forearm weakness, patient has hx of methamphetamine use. COORDINATOR HOTELS reviews patient with ED provider and DCP team. AVTAR Madera reviews patient further with ED provider. When this COORDINATOR HOTELS was in another patient room, ED provider discharges patient upon medical clearance. Patient was offered MH and SE services but patient declined. Lakeshia Still, FORMING MACHINE UPKEEP MECHANIC
== END 2023-11-08 12:14 | disposition home or self-care (01) ==
PROVIDERS: Emergency Provider Emergency Medicine; PCP Nurse Practitioner Family
DX: I63.511 Cerebral infarction due to unspecified occlusion or stenosis of right middle cerebral artery (principal)
CPT/HCPCS: 99281

== ENCOUNTER 2023-11-22 09:12 | Outpatient (RCR) | payer OTHER, MEDICAID, SELFPAY ==
[2023-11-05 22:05] VITALS: BMI 29.1
--- NOTE | 2023-11-22 15:52 | OT.OP.DC ---
Visit Care Team Role Provider Type Kevin Reardon MD Attending Provider Physician Family Provider Primary Care Provider Referring Provider Address: [address], [place], [address] Email: [email or web address] Outpatient OT Outpatient Adult Evaluation Start: 11/22/23 14:08 Freq: Status: Active Protocol: Document 11/22/23 14:08 AMS (Rec: 11/22/23 14:22 AMS [id number]) General Information - Adult Visit Information Visit Number [id number] Insurance Information [facility]; *Auth 24 PT/OT combined visits PCY Session Time Visit Start Time 09:35 Visit Stop Time 10:00 Setting Treatment Setting Outpatient Care Visit Type Note Type Initial Evaluation Assessment/Plan Assessment Treatment Assessment Tushar is a 43 y.o. left hand dominant male referred to OT secondary to CVA w/ onset of L sided weakness. Medical Health History is significant for blood clots, blood pressure (med managed), headaches, and stroke/TIA; L 5th digit flexion contraction at [facility] (denied h/o break/ fracture to the digit). There is also h/o surgeries, although, they were not listed on intake form. 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 This is currently reportedly the off- season. He stated that his insurance wants him to have a vocational evaluation/physical ; his goal is to return to work in 1-2 wks. Report of some L sided neglect which has resolved; initially was reportedly bumping into things on the L. QuickDASH UE Outcome Measure Score = 34.09. QuickDASH Work Module Score = 81.25. Tushar reports active incorporation of the L hand in daily life; has been carrying items with the left hand, as well as using a hand machine striper that a friend that plays the guitar recommended. Tushar reports that his handwriting is primarily affected but he continues to work at it; he presents w/ bilateral folded sleeves of small button-up shirt, bilaterally tied shoe laces, and R clasped bracelet w/ no reported support. With dynamometer II elevator examiner and adjuster strength testing w/ elbow(s) in 90 degrees flexion, R elevator examiner and adjuster = 103. 0# of force vs L elevator examiner and adjuster = 70.0# of force. Pinchometer testing: R lateral sheppard pinch = 27.0# of force vs L lateral sheppard pinch = 18.0# of force; R tip pinch = 17.0# of force vs L tip pinch = 8.5# of force; R 3 -jaw pinch = 21.0# of force vs L 3-jaw pinch = 13.0# of force. Tushar demonstrates good proximal compensatory strategies to support L hand coordination, as well as good separation of the 2 sides of the hand. Tushar has exercises that he completes at home and continues to work on tasks that are more difficult for him. He denied need for additional OT visits at this time. Plan Patient Recommendations Discharge from Occupational Therapy Functional Wrist/Hand Scan Hand Side Sensory Assessment Sensory Profile2
== END 2023-11-27 13:22 ==
LOC: OT 09:12
PROVIDERS: Family Provider Family Medicine; PCP Family Medicine; Referring Provider Family Medicine; Visit Provider Family Medicine
DX: I63.40 Cerebral infarction due to embolism of unspecified cerebral artery (principal); I69.354 Hemiplegia and hemiparesis following cerebral infarction affecting left non-dominant side
CPT/HCPCS: 97165